=== PATIENT | female | born 1940 | race Caucasian/White ===

== ENCOUNTER → 2023-09-05 13:57 | Outpatient (REF) | payer OTHER, SELFPAY | LOC: HWRCS 13:57 | PROVIDERS: ATTENDING PHYSICIAN Internal Medicine Cardiovascular Disease; FAMILY PHYSICIAN Internal Medicine | DX: R06.02 Shortness of breath (principal) | CPT/HCPCS: 93306 ==

== ENCOUNTER 2024-01-07 13:19 | Inpatient (IN) | payer OTHER, SELFPAY ==
[2024-01-06] VITALS (8 sets, daily range): BP systolic 112–170; BP diastolic 56–97; PULSE 58–66; BMI 29.1
--- NOTE | 2024-01-06 20:07 | ED.GENMED ---
History of Present Illness
<ZELDA Castillo - Last Filed: 01/07/24 00:21>
General
Chief Complaint: Fainting/Passed Out
Source: patient
Exam Limitations: none
Time Seen by Provider: 01/06/24 19:40
Nursing documentation reviewed up to this point in time: agreed with
History of Present Illness
History of Present Illness:
Patient is an 83-year-old female who presents via EMS.
Patient has a history of hypertension COPD CHF and hyperlipidemia, brain aneurysm followed by [place] diastolic heart failure with EF of 65-70%(echo from August 2023) patient was at family dinner this evening and was sitting in a chair and got up to walk
and grandson reports she stated that she did not feel well and she passed out. She was called by her family she did not fall to the ground. They put her in a chair and she tried to stand up again and passed out again and then had 2 additional
syncopal episodes while in the chair.
Patient was drinking alcohol with dinner she does normally drink a glass of vodka a day.
She currently feels thirsty. She remembers feeling not well like she was going to pass out.
She denies any chest pain. She denies any shortness breath. She denies any headache. She is not on blood thinners. She does report she has not been feeling well for at least over the past week.
Past History
<ZELDA Castillo - Last Filed: 01/07/24 00:21>
Past History
ED Past Medical History: Asthma, CHF, COPD, HTN, Hypercholesterolemia, Hypothyroidism and Other (T-11 and L1 compression Fx, Ovarian cyst); Negative IDDM
ED Past Surgical History: Appendectomy, Cardiac (LINK), Cholecystectomy, Gynecological (Tubal, ), Orthopedic (Right hip replacement, Bilateral knee torn Meniscus), Tonsilectomy and Other (Abdominoplasty, Hernia repair, Vertebroplasty)
Social History
Tobacco: Former smoker
Alcohol: Daily (Vodka 1)
Drug: None
Personal:
Living: with family
Employment: Employed ([employer])
Family History
Family History: CAD and Asthma
Review of Systems
<ZELDA Castillo - Last Filed: 01/07/24 00:21>
Review of Systems
Allergies reviewed?: Yes
All Other Systems: ROS reviewed and negative except as documented in HPI and ROS
Constitutional: Reports no symptoms; Denies fever, fatigue or chills
EENT: Reports no symptoms
Respiratory: Reports no symptoms
Cardiac: Reports syncope
: Reports no symptoms
Musculoskeletal: Reports no symptoms
Skin: Reports no symptoms
Psychiatric: Reports no symptoms
Phy Exam
<ZELDA Castillo - Last Filed: 01/07/24 00:21>
General Physical Exam
General Presentation: no apparent distress
General age: appears stated age
General Skin: warm and dry
General Habitus: normal
General Mental: alert
General Hydration: appears well hydrated
Cardiovascular Exam
Cardiovascular Exam: bradycardia
Pulmonary Exam
Pulmonary Exam: lungs clear and no respiratory distress
Neurological Exam
Neurological Exam: alert and oriented x3
Musculoskeletal Exam
Musculoskeletal Exam: full ROM
Skin Exam
Skin Exam: normal color and warm/dry
Psychiatric Exam
Psychiatric Exam: normal mood/affect
Course
<ZELDA Castillo - Last Filed: 01/07/24 00:21>
Orders/Labs/Results
Orders:
Orders
01/06/24 19:43
Electrocardiogram (*1) Urgent
Reason for Study: Syncope
01/06/24 19:44
EKG- Treatment ONCE
01/06/24 19:54
CT Head W/o Iv Contrast Urgent
Comment:
Reason For Exam: syncope
01/06/24 20:03
Alcohol Urgent
Complete Blood Count/With Diff Urgent
Comprehensive Metabolic Panel Urgent
Free T4 Urgent
TSH Reflex To Free T4 Urgent
Comment: ADD ON
01/06/24 20:06
Orthostatic VS- Treatment ONCE
01/06/24 20:07
0.9% Sodium Chloride 500 ml [Nss] 500 ml IV BOLUS
01/06/24 20:33
Add On- LAB Urgent
Tests Added?: alcohol level
01/06/24 20:51
Urinalysis Reflex To Culture Urgent
Date Specimen was Collected: 01/06/24
Time Specimen was Collected: 20:49
01/06/24 22:11
0.9% Sodium Chloride 500 ml [Nss] 500 ml IV BOLUS
01/06/24 22:21
Mag Hydrox/Al Hydrox/Simeth [Maalox] 30 ml PO NOW STA
01/07/24 00:22
Albuterol [ProAIR HFA INHALER] 2 puff INH R Q4 PRN
Zolpidem Tartrate [Ambien] 10 mg PO HSPRN PRN
01/07/24 08:00
Aspirin Chewable [Low Strength Aspirin] 81 mg PO DAILY
Bumetanide [Bumex] 2 mg PO DAILY
Docusate Sodium [Colace] 100 mg PO DAILY
nifedipine 60 mg PO BID
omeprazole 40 mg PO BID
01/07/24 22:00
Montelukast Sodium [Singulair] 10 mg PO HS
Rosuvastatin Calcium [Crestor] 40 mg PO HS
Abnormal Lab Results
01/06/24
20:03
RBC 3.33 L 10^6/uL
(4.20-5.40)
Hgb 11.1 L g/dL
(12.0-16.0)
Hct 32.8 L %
(37.0-47.0)
MCH 33.3 H pg
(27.0-31.0)
MPV 10.5 H fL
(7.4-10.4)
Absolute Monos (auto) 0.8 H 10^3/uL
(0.1-0.6)
Monocytes % 9.8 H %
(1.7-9.3)
Potassium 3.4 L mmol/L
(3.5-5.1)
BUN 20 H mg/dl
(7-17)
Creatinine 1.1 H mg/dL
(0.6-1.0)
Alkaline Phosphatase 35 L U/L
(38-126)
TSH (Reflex) 39.00 H uIU/ml
(0.47-4.68)
Free T4 0.54 L ng/dl
(0.78-2.19)
01/06/24 20:03
01/06/24 20:03
Vital Signs
Initial and Last Documented VS:
Initial Vital Signs
Temp Pulse Resp Pulse Ox
98 F 64 22 94
01/06/24 19:44 01/06/24 19:44 01/06/24 19:44 01/06/24 19:44
Last Documented Vital Signs
Temp Pulse Resp BP Pulse Ox
98 F 51 12 170/61 94
01/06/24 19:44 01/06/24 21:58 01/06/24 21:58 01/06/24 22:11 01/06/24 19:44
Label Remover consulted with Physician
Label Remover consulted with physician?: Yes
Name of Physician Consulted: Jorge
<Silas Hickey, DO - Last Filed: 01/07/24 00:29>
Orders/Labs/Results
Orders:
Orders
01/06/24 19:43
Electrocardiogram (*1) Urgent
Reason for Study: Syncope
01/06/24 19:44
EKG- Treatment ONCE
01/06/24 19:54
CT Head W/o Iv Contrast Urgent
Comment:
Reason For Exam: syncope
01/06/24 20:03
Alcohol Urgent
Complete Blood Count/With Diff Urgent
Comprehensive Metabolic Panel Urgent
Free T4 Urgent
TSH Reflex To Free T4 Urgent
Comment: ADD ON
01/06/24 20:06
Orthostatic VS- Treatment ONCE
01/06/24 20:07
0.9% Sodium Chloride 500 ml [Nss] 500 ml IV BOLUS
01/06/24 20:33
Add On- LAB Urgent
Tests Added?: alcohol level
01/06/24 20:51
Urinalysis Reflex To Culture Urgent
Date Specimen was Collected: 01/06/24
Time Specimen was Collected: 20:49
01/06/24 22:11
0.9% Sodium Chloride 500 ml [Nss] 500 ml IV BOLUS
01/06/24 22:21
Mag Hydrox/Al Hydrox/Simeth [Maalox] 30 ml PO NOW STA
01/07/24 00:22
Albuterol [ProAIR HFA INHALER] 2 puff INH R Q4 PRN
Zolpidem Tartrate [Ambien] 10 mg PO HSPRN PRN
01/07/24 08:00
Aspirin Chewable [Low Strength Aspirin] 81 mg PO DAILY
Bumetanide [Bumex] 2 mg PO DAILY
Docusate Sodium [Colace] 100 mg PO DAILY
nifedipine 60 mg PO BID
omeprazole 40 mg PO BID
01/07/24 22:00
Montelukast Sodium [Singulair] 10 mg PO HS
Rosuvastatin Calcium [Crestor] 40 mg PO HS
Abnormal Lab Results
01/06/24
20:03
RBC 3.33 L 10^6/uL
(4.20-5.40)
Hgb 11.1 L g/dL
(12.0-16.0)
Hct 32.8 L %
(37.0-47.0)
MCH 33.3 H pg
(27.0-31.0)
MPV 10.5 H fL
(7.4-10.4)
Absolute Monos (auto) 0.8 H 10^3/uL
(0.1-0.6)
Monocytes % 9.8 H %
(1.7-9.3)
Potassium 3.4 L mmol/L
(3.5-5.1)
BUN 20 H mg/dl
(7-17)
Creatinine 1.1 H mg/dL
(0.6-1.0)
Alkaline Phosphatase 35 L U/L
(38-126)
TSH (Reflex) 39.00 H uIU/ml
(0.47-4.68)
Free T4 0.54 L ng/dl
(0.78-2.19)
01/06/24 20:03
01/06/24 20:03
Vital Signs
Initial and Last Documented VS:
Initial Vital Signs
Temp Pulse Resp Pulse Ox
98 F 64 22 94
01/06/24 19:44 01/06/24 19:44 01/06/24 19:44 01/06/24 19:44
Last Documented Vital Signs
Temp Pulse Resp BP Pulse Ox
98 F 51 12 170/61 94
01/06/24 19:44 01/06/24 21:58 01/06/24 21:58 01/06/24 22:11 01/06/24 19:44
<ZELDA Castillo - Last Filed: 01/07/24 00:21>
MDM/Problems Addressed
MDM/Problems Addressed:
As documented patient is a 83-year-old female who had several episodes of witnessed syncope by family this evening. Patient was having dinner with family and did have an alcoholic beverage.
She presents today awake alert she does not recall having syncope she does report feeling lightheaded when she was walking prior to syncope occurring. She does drink alcohol 1 glass of With juice every day. She presents lightheaded and feels
dehydrated however no chest pain shortness of breath. Patient's heart rate here has been in the 50s she denies any recent illness denies any recent fever chills her white count is normal her hemoglobin stable at 11.1, her creatinine is 1.1, patient
does have hypothyroidism and is on thyroxine her TSH is high her free T4 is slightly low.
Patient was monitored here given fluids drinking fluids as well however still feels intermittently lightheaded when she walks. She remains bradycardic in the 50s here in the ER. She is followed by Dr. Funes cardiology here at [facility]
would recommend admission for syncope and lightheadedness.
Chronic conditions affecting care:
hypothyroidism
<ZELDA Castillo - Last Filed: 01/07/24 00:21>
*Radiology
Radiology exam reviewed: radiology read reviewed
*Pulse Oximetry
Patient hypoxic: no
*EKG
Interpreted by ED Provider?: Yes
Heart Rate: 54
Rate: bradycardiac
Rhythm: sinus
Ischemia: non-specific ST changes
*Critical Care Note
Total Time (30-74mins, 75-104mins- exclusive of procedures): Not Applicable
ED Attending Note
<ZELDA Castillo - Last Filed: 01/07/24 00:21>
-
Portions of this chart may have been created with voice recognition software.� Occasional wrong word or��sound alike� substitutions may have occurred due to the inherent limitations of voice recognition software.
<Silas Hickey DO - Last Filed: 01/07/24 00:29>
ED Attending Note
Patient seen and examined by attending physician: Yes
I performed the substantive portion of visit, reviewed & personally made and approve the management plan that is documented in note by myself or DONNA.: Yes
ED Attending Note:
Patient is an 83-year-old female who had a near syncopal episode and had to be caught and placed in a chair by her granddaughter and grandson. Patient drinks a vodka and cranberry every day and had done this tonight. Patient was unable to recall
what she ate for dinner. Patient denied any headache or neck pain. Patient denied any recent illnesses or injuries. Patient denied any chest pain, shortness of breath or palpitations. Patient denies any GI or symptoms. On physical exam
patient does not appear in any distress. Heart is regular but bradycardic. Lungs are clear. Abdomen soft nontender. Extremities without edema or cyanosis. Neurologically the patient is intact. Patient is bradycardic despite not being on
beta-blockers or calcium channel blockers other than nifedipine. Patient wanted to go home. 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 My inclination was to
admit her from the start but she was insistent on going home. However given the repeat episodes she will be admitted. 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 However patient will be admitted either
way. Concerned that patient may go into alcohol withdrawal as she make sure that she has a vodka and cranberry every day. Patient states she uses a shot and a half of vodka and only drinks 1.
Discharge Plan
Departure
Patient Disposition: Admit
Date of Disposition: 01/06/24
Time of Disposition: 23:12
Admit to: Telemetry
Admit to doctor: hospitalist
Presentation/result/management discussed w/ accepting MD/DO: Hospitalist
Patient with high blood pressure during this ER visit?: Yes
Condition: Fair
Covid-19: Not Applicable
Discharge Problem:
Syncope
Prescriptions:
No Action
rosuvastatin [Crestor] 40 mg Tablet
40 mg PO HS
bumetanide 2 mg Tablet
2 mg PO DAILY Qty: 0 0RF
aspirin 81 mg Tablet,Chewable
81 mg PO DAILY Qty: 0 0RF
levothyroxine 112 mcg tablet
112 mcg PO DAILY
omeprazole 40 mg capsule,delayed release(DR/EC)
40 mg PO BID
potassium chloride 20 mEq tablet,ER particles/crystals
20 meq PO BID
nifedipine 60 mg tablet extended release 24hr
60 mg PO BID
docusate sodium [Stool Softener] 100 mg Capsule
100 mg PO DAILY
montelukast 10 mg tablet
10 mg PO HS
albuterol sulfate 90 mcg/actuation HFA aerosol inhaler
2 puff INHALATION R Q4 PRN (Reason: sob/wheezing)
guaifenesin [Mucinex] 600 mg Tablet Extended Release 12hr
600 mg PO BID
meclizine 25 mg tablet
25 mg PO BID PRN (Reason: dizziness) Qty: 20 0RF
zolpidem 5 mg tablet
10 mg PO HSPRN PRN (Reason: insomnia)
Referrals:
Karen Chris MD [Family Provider] -
Interventions
Interventions:
*Risk Screen - Suicide Last Done: 01/06/24 19:50
*General Assessment Last Done: 01/06/24 19:50
*Neglect/Abuse Screening Last Done: 01/06/24 19:50
*ED COVID-19 Vaccine History Last Done: 01/06/24 19:50
ED- Cardiac Assessment Last Done: 01/06/24 20:27
ED- Neurological Assessment Last Done: 01/06/24 20:27
Discharge Date and Time
Print Language: MOHAWK
[2024-01-06 20:10] LABS: % Basophils 0.9 % (0-2); % Eosinophils 4.5 % (0-6); % Immature Granulocytes 0.3 % (0-0.5); % Lymphocytes 29.7 % (20.5-51.1); % Monocytes 9.8 % (1.7-9.3); % Neutrophils 54.8 % (42.2-75.2); Absolute Basophils 0.1 10^3/uL (0-0.2); Absolute Eosinophils 0.4 10^3/uL (0-0.7); Absolute Lymphocytes 2.3 10^3/uL (1.2-3.4); Absolute Monocytes 0.8 10^3/uL (0.1-0.6); Absolute Neutrophils 4.2 10^3/uL (1.4-6.5); Hematocrit 32.8 % (37.0-47.0); Hemoglobin 11.1 g/dL (12.0-16.0); Mean Corp Hgb Conc. 33.8 g/dL (33.0-37.0); Mean Corpuscular Hgb 33.3 pg (27.0-31.0); Mean Corpuscular Volume 98.5 fL (81.0-99.0); Mean Platelet Volume 10.5 fL (7.4-10.4); Nucleated Red Blood Cells % 0 %; Platelet Count 221 10^3/uL (130-400); Red Blood Cell Count 3.33 10^6/uL (4.20-5.40); Red Cell Dist. Width 14.5 % (11.5-14.5); White Blood Cell Count 7.7 10^3/uL (4.8-10.8)
[2024-01-06] MEDS: NSS 500 IV ×2 (20:11→22:14)
[2024-01-06 20:27] LABS: ALT (SGPT) 15 U/L (0-35); AST (SGOT) 27 U/L (14-36); Alkaline Phosphatase 35 U/L (38-126); Blood Urea Nitrogen 20 mg/dl (7-17); Calcium 9.1 mg/dl (8.4-10.2); Carbon Dioxide 23 mmol/L (22-30); Chloride 104 mmol/L (98-107); Estimated Creatinine Clearance 42 ml/min; Glucose 95 mg/dl (70-99); Potassium 3.4 mmol/L (3.5-5.1); Sodium 140 mmol/L (135-145); Total Bilirubin 0.2 mg/dl (0.2-1.3); Total Protein 6.5 g/dl (6.3-8.2); eGFR 50.48
[2024-01-06 20:50] LABS: Alcohol 61 mg/dl
[2024-01-06 20:58] LABS: Urine Albumin Negative (Neg - Trace); Urine Bilirubin Negative (Negative); Urine Character Clear (Clear); Urine Color Yellow; Urine Glucose Negative (Negative); Urine Ketone Negative (Negative); Urine Leukocyte Negative (Negative); Urine Nitrite Negative (Negative); Urine Occult Blood Negative (Negative); Urine Urobilinogen Negative (Neg - 1+)
[2024-01-06 21:57] LABS: Free T4 0.54 ng/dl (0.78-2.19)
[2024-01-06] MEDS: MAALOX 30 ML PO (22:34)
[2024-01-07] VITALS (12 sets, daily range): BP systolic 82–181; BP diastolic 46–92; PULSE 53–59; BMI 28.4
--- NOTE | 2024-01-07 00:10 | HPS.HSE ---
Family Physician
-
Family Physician: Karen Chris
Chief Complaint
-
Syncopal / presyncopal episodes
History of Present Illness
This is an 83-year-old female was a past medical history that is significant for hypothyroidism, hypertension, CHF with preserved EF, chronic alcohol use, COPD not on home O2, prior episodes of syncopal status post ambulatory monitoring, presenting
to the emergency department with episode of syncope this evening.
Patient reports arousing in usual state of health. Had usual activities today. Had dinner. After dinner the patient said she felt lightheaded. She is due to up to walk up a flight of stairs and family members reported her fainting to the floor.
She did not fall as family members were able to support her to the floor. They report around a chair and the patient had to be supported to keep her head up. She was intermittently responsive. This lasted for about 15 minutes and then the patient
came back to her usual state. Family denied any tonic-clonic activity. There was no loss of bladder or bowel continence. Patient herself denied any nausea. She denied any chest pain at the time. Patient denies any recent episodes of chest pain
exertional or otherwise. She denied any changes in breathing difficulties but states that she chronically has some shortness of breath. She denies any lower extremity swelling or calf tenderness. She denies any recent cough fevers or chills. She
denies any melena hematochezia or diarrhea. She has no recent changes in her medications and has been maintaining of 2 mg of Bumex daily chronically. She denies any prior history of cardiac stents or CABG.
In the emergency department she was afebrile, blood pressure was initially 170/60 with a pulse of 51 and she was satting at 93% on room air. ECG shows a sinus bradycardia at a rate of 54 no acute ischemic changes. No interval changes. Telemetry
did showed occasional PVC. CBC was unremarkable electrolytes showed a potassium of 3.4 but otherwise unremarkable. Creatinine was 1.1 which is similar to a baseline of 1.0. UA was negative. TSH was elevated and free T4 was slightly below the
normal level. No CT evidence for acute intracranial hemorrhage or transcortical infarct. When attempting to ambulate in the ED the patient still felt lightheaded. Prior Linq device has been long deactivated.
Medical History
Past Medical History
Past Medical History: Reports CHF (preserved ef), COPD and Hypothyroidism
Additional Past Medical History:
BPPV
Past Surgical History: Reports Other
Social History
Tobacco: Former Smoker
Alcohol: Daily (2 shots per day, )
Drug: None
Personal: Single
Living: With Family
Employment: Retired
Family History
Family History: Not pertinent
Allergies / Home Medications
Allergies reflects when Allergies were last updated in [facility] [employer].
Home Medications with original date entered in [facility] [employer]
Allergy/Medication List:
Allergies
Allergy/AdvReac Type Severity Reaction Status Date / Time
amoxicillin Allergy diarrhea Verified 10/31/22 18:23
morphine Allergy Vomiting Verified 10/31/22 18:23
Home Medications
rosuvastatin 40 mg tablet (Crestor) 40 mg PO HS High cholesterol 11/04/21
aspirin 81 mg chewable tablet 81 mg PO DAILY Blood clot prevention/tx #0 tabs 04/26/22
bumetanide 2 mg tablet 2 mg PO DAILY Fluid retention/Swelling #0 tabs 04/26/22
levothyroxine 112 mcg tablet 112 mcg PO DAILY Thyroid 07/11/22
albuterol sulfate 90 mcg/actuation aerosol inhaler 2 puff inhalation R Q4 PRN sob/wheezing 10/31/22
docusate sodium 100 mg capsule (Stool Softener) 100 mg PO DAILY 10/31/22
guaifenesin 600 mg tablet, extended release 12 hr (Mucinex) 600 mg PO BID 10/31/22
montelukast 10 mg tablet 10 mg PO HS 10/31/22
nifedipine 60 mg tablet,extended release 24 hr 60 mg PO BID 10/31/22
omeprazole 40 mg capsule,delayed release 40 mg PO BID 10/31/22
potassium chloride 20 mEq tablet,extended release(part/cryst) 20 meq PO BID 10/31/22
meclizine 25 mg tablet 25 mg PO BID PRN dizziness #20 tabs 11/02/22
zolpidem 5 mg tablet 10 mg PO HSPRN PRN insomnia 01/06/24
Review of Systems
-
History Source: Patient
Constitutional: Reports No Symptoms
EENT: Reports No Symptoms
Respiratory: Reports No Symptoms
Cardiac: Reports No Symptoms
Abdomen/GI: Reports No Symptoms
: Reports No Symptoms
Musculoskeletal: Reports No Symptoms
Skin: Reports No Symptoms
Neurological: Reports Dizzy
Endocrine: Reports No Symptoms
Hematologic/Lymphatic: Reports No Symptoms
Psych: Reports No Symptoms
Physical Exam
Vital Signs
Vital Signs
Temp Pulse Resp BP Pulse Ox
98 F 51 12 170/61 94
01/06/24 19:44 01/06/24 21:58 01/06/24 21:58 01/06/24 22:11 01/06/24 19:44
Physical Exam
General: Well Developed, Well Nourished, No Apparent Distress and Comfortable
HEENT: NormoCephalic, Anicteric, Moist mucous membranes and Atraumatic
Respiratory: Clear
Cardiac: S1/S2 and Bradycardia
Breast: Deferred by me
GI: Soft, Non Tender, Non Distended and Normal Bowel Sounds
Musculoskeletal: No Clubbing, No Cyanosis and No Edema
Skin: Warm
Neuro: AO x 3
Hematologic/Lymphatic: No Lymphadenopathy
Psych: Calm
Laboratory Results
-
01/06/24 20:03
01/06/24 20:03
Laboratory Results
Total Bilirubin 0.2 mg/dl (0.2-1.3) 01/06/24 20:03
AST 27 U/L (14-36) 01/06/24 20:03
ALT 15 U/L (0-35) 01/06/24 20:03
Alkaline Phosphatase 35 U/L (38-126) L 01/06/24 20:03
Data Reviewed
-
CT Scan: Report Reviewed by me
Medical Tests (Nuc Med, Echo, EKG etc): Image Personally Visualized and interpreted
Lab Data: Labs Reviewed by me
Old Records: Reviewed
Impression/Plan
-
IMPRESSION:
83-year-old female with past medical history of HFpEF, COPD not on home O2, hypertension, hypothyroid, prior episodes of dizziness, BPPV status post total ambulatory monitoring presenting to the emergency department with witnessed syncopal episode
at home. Patient currently asymptomatic but feels lightheaded. ECG shows sinus bradycardia but otherwise unremarkable. CT of the head shows no acute changes. Troponin was within normal limits. Patient CBC and electrolytes were mostly
unremarkable. UA was unremarkable.
PLAN:
1. Dizziness - Vasovagal vs arrhythmia vs orthostatic. No vertigo. H/o etoh but denies any more than usual drinking today
- admit to telemetry x 24 h
- orthostatic vs
- hold bumex in am pending orthostatics
- echo in am
- etoh level
- sinus vibha not on kerrie blockade and normal intervals. Monitor for now, with orthostatics and with activity, avoid rate lowering agents, increasing levothyroxine (see below)
- cycle cardiac enzymes
2. Hypothyroid - TSH is elevated and fT4 low
- increase levothyroxine to 137.5 and f/u with pmd
- monitor heart rate
3. CHF - preserved EF, no cardiac ischemia or history of. Appears euvolemic on exam to me
- continue nifediipine
- there is question of adjusting her bumex per outpatient notes, will defer to cardiology if not orthostatic
- family request cardiology consult but I don't yet see the need so awaiting monitoring results
4. COPD
- no ox2 requirements, continue albuterol prn and home montelukast
DVT PPX - lovenox
Code Status - Full code
[2024-01-07] MEDS: AMBIEN 10 MG PO (01:50)
[2024-01-07] MEDS: MAGNESIUM OXIDE 500 MG PO (02:40)
--- NOTE | 2024-01-07 03:53 | PTCARENOTE ---
Patient received from ED via stretcher. Patient denies any pain or discomfort upon arrival to unit. Patient reports some dizziness at times. Patient aware she needs to call before getting OOB. Patient hypertensive, Sinus Bradycardia noted on
conveyor monitor. Heart rate noted to go into the 30's when sleeping. ZELDA Freire made aware of bradycardia. Call be[facility] reviewed with patient and left in reach. Will monitor.
[2024-01-07] MEDS: SYNTHROID 137 MCG PO (05:59)
[2024-01-07] MEDS: COLACE 100 MG PO (08:10)
[2024-01-07] MEDS: PROTONIX 40 MG PO ×2 (08:10→21:12)
[2024-01-07] MEDS: PROCARDIA XL (EXTENDED RELEASE) 60 MG PO (08:10)
[2024-01-07] MEDS: LOW STRENGTH ASPIRIN 81 MG PO (08:10)
[2024-01-07 08:21] LABS: Blood Urea Nitrogen 16 mg/dl (7-17); Calcium 8.2 mg/dl (8.4-10.2); Carbon Dioxide 28 mmol/L (22-30); Chloride 105 mmol/L (98-107); Estimated Creatinine Clearance 41 ml/min; Glucose 89 mg/dl (70-99); Magnesium 2.3 mg/dl (1.6-2.3); Potassium 4.4 mmol/L (3.5-5.1); Sodium 141 mmol/L (135-145); eGFR 50.48
--- NOTE | 2024-01-07 08:54 | CON.CAR ---
Addendum entered and electronically signed by Prerna Mckeon DO 01/07/24 14:48:
I saw and examined the patient.
The Policy Services Representative's note was reviewed and I agree with the note.
Comment: Carly came to [facility] yesterday after an episode of syncope at home and cardiology has been consulted. Patient was attending a family dinner last night and she stood up from a seated position and attempted to climb stairs when she became less
responsive and appeared near syncopal. Family attended to patient and she lost consciousness and was lowered to the floor and avoided falling. Patient had another episode of syncope when she attempted to stand and again while seated in a chair,
sounds like 4 episodes of loss of consciousness in total. 911 was called and in [facility] the patient continued with lightheadedness and near syncope and was admitted. Patient is orthostatic by VS. Called patient's granddaughter, Megan, who is a PA with
local PCP office and we had an informative conversation. Patient lives alone, but has seen cognitive specialist for concerns about memory, especially dates and times. Patient has her meds delivered in monthly pill packs and reported to me that she
was compliant with her meds, but upon talking with family the patient's November pill pack is untouched and it is now December. Patient also says that she drink 1.5 shots of vodka a night and has done so for years, but that last night she had closer
to 5 shots and this was likely an accident as she usually measures her alcohol at home, but was drinking a pre-mixed alcoholic beverage last night and the quantity of alcohol wasn't clear. Patient has a h/o syncope with admissions for syncope 03/2022
and 10/2022. Other admissions have been for orthostasis and dizziness. Patient has a h/o cerebral aneurysm that is followed at [place] and there was discussion of clipping at some point, but patient was busy caring for her who has now
. CT head overnight was unremarkable and MRI pending. TSH 39 and free T4 0.54 with levothyroxine noncompliance as mentioned.
GEN: NAD. AAO x3.
HEENT: mmm
LUNGS: CTA B/L without wheeze or rales
CV: SR on tele. Reg, S1/S2, no murmur
ABD: soft, BS+, NT, ND
EXT: No edema B/L
Plan:
Witnessed syncope at home
-Patient was attending a family dinner last night and she stood up from a seated position and attempted to climb stairs when she became less responsive and appeared near syncopal. Family attended to patient and she lost consciousness and was lowered
to the floor and avoided falling. Patient had another episode of syncope when she attempted to stand and again while seated in a chair, sounds like 4 episodes of loss of consciousness in total. 911 was called and in [facility] the patient continued with
lightheadedness and near syncope and was admitted.
-Orthostatic vital signs positive
-ECG reviewed by me with sinus bradycardia and no acute ischemic changes. Initial Troponin undetectable.
-Probably related to dehydration/alcohol. Cardiac PA called patient's granddaughter, Megan (PA at a local PCP office) who was present at [facility] of her syncopal event: Patient lives alone, but has seen cognitive specialist for concerns about memory,
especially dates and times. Patient has her meds delivered in monthly pill packs and reported to me that she was compliant with her meds, but upon talking with family the patient's November pill pack is untouched and it is now December. Patient also
says that she drink 1.5 shots of vodka a night and has done so for years, but that last night she had closer to 5 shots and this was likely an accident as she usually measures her alcohol at home, but was drinking a pre-mixed alcoholic beverage last
night and the quantity of alcohol wasn't clear.
-Patient has a h/o syncope with admissions for syncope 03/2022 and 10/2022 and admissions for orthostasis and dizziness.
-Monitor orthostatic vital signs.
-Will stop Bumex and start Lasix 20 mg MWF.
-Repeat echocardiogram
-Monitor telemetry. So far no significant bradycardia arrhythmia, pauses or arrhythmia
-Will arrange for a 7 day CAM monitor to be worn as an outpatient.
-Monitor for alcohol withdrawal/DTs
-ETOH cessation has been stressed by healthcare providers and family, but patient is not interested in cessation.
-Patient had a favorable response to Lexapro 10 mg daily and then stopped taking after a month when it wasn't added to her pill packs, will restart now and check ECG in AM
-Patient has a h/o cerebral aneurysm that is followed at [place] and there was discussion of clipping at some point, but patient was busy caring for her who has now .
- CT of the head with no acute intracranial hemorrhage or infarct. 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 She also has moderate
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
-Brain MRI with no acute intracranial abnormality. Again, small, chronic infarcts noted in the right cerebellum. Left frontal sinus and bilateral ethmoid sinus disease.
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 High-grade stenosis of the P2 segment of the right IDENTIFICATION OFFICER
-Carotid duplex 11/01/2022: 50 to 69% stenosis right ICA. Less than 50% left ICA. Repeat.
Hypothyroidism with medication noncompliance
-TSH 39 and free T4 0.54
Will follow with
Original Note:
Consultation
Consultation Request
Date/Time Consultation Requested: 01/07/24
Date/Time Consultation Performed: 01/07/24
Requesting Provider: Dr. Arias
Performing Provider: Dr. Burgess
Reason for Consultation: Syncope
Medical History
-
History of Present Illness:
Patient came to [facility] yesterday after an episode of syncope at home and cardiology has been consulted. Patient was attending a family dinner last night and she stood up from a seated position and attempted to climb stairs when she became less
responsive and appeared near syncopal. Family attended to patient and she lost consciousness and was lowered to the floor and avoided falling. Patient had another episode of syncope when she attempted to stand and again while seated in a chair,
sounds like 4 episodes of loss of consciousness in total. 911 was called and in [facility] the patient continued with lightheadedness and near syncope and was admitted. Patient is orthostatic by VS. Called patient's granddaughter, Megan, who is a PA with
local PCP office and we had an informative conversation. Patient lives alone, but has seen cognitive specialist for concerns about memory, especially dates and times. Patient has her meds delivered in monthly pill packs and reported to me that she
was compliant with her meds, but upon talking with family the patient's November pill pack is untouched and it is now December. Patient also says that she drink 1.5 shots of vodka a night and has done so for years, but that last night she had closer
to 5 shots and this was likely an accident as she usually measures her alcohol at home, but was drinking a pre-mixed alcoholic beverage last night and the quantity of alcohol wasn't clear. Patient has a h/o syncope with admissions for syncope 03/2022
and 10/2022. Other admissions have been for orthostasis and dizziness. Patient has a h/o cerebral aneurysm that is followed at [place] and there was discussion of clipping at some point, but patient was busy caring for her who has now
. CT head overnight was unremarkable and MRI pending. TSH 39 and free T4 0.54 with levothyroxine noncompliance as mentioned.
PMH:
Orthostatic hypotension
h/o syncope
HTN
Chronic HFpEF
Hypothyroid
Medication noncompliance
Chronic HF preserved ejection fraction.
COPD and asthma overlap
Non-obstructive CAD by cath 11/13/16
Hyperlipidemia
Hypothyroidism
GERD
h/o TIA and cerebral aneurysm
Linq implant 01/2020, no longer transmitting data since 04/2023
Past Medical History
Past Medical History: Other (in HPI)
Past Surgical History: Appendectomy, Cardiac (linq monitor), Cholecystectomy, Gynecological (Tubal ligation), Orthopedic (Right hip replacement), Tonsilectomy and Other (Abdominoplasty, Hernia repair, Vertebroplasty)
Social History
Tobacco: Non-Smoker
Alcohol: Daily (1 drink daily - 1.5 shots of vodka in a cocktail)
Drug: None
Personal:
Living: With Family
Family History
Family History: CAD (mother CAD/[place] at 62) and Cancer (father prostate CA)
Allergies / Home Medications
Allergy/AdvReac Type Severity Reaction Status Date / Time
amoxicillin Allergy diarrhea Verified 10/31/22 18:23
morphine Allergy Vomiting Verified 10/31/22 18:23
�Medication �Instructions �Recorded �Confirmed �Type
rosuvastatin 40 mg tablet (Crestor) 40 mg PO HS High cholesterol 11/04/21 01/06/24 History
aspirin 81 mg chewable tablet 81 mg PO DAILY Blood clot 04/26/22 01/06/24 Rx
prevention/tx #0 tabs
bumetanide 2 mg tablet 2 mg PO DAILY Fluid 04/26/22 01/06/24 Rx
retention/Swelling #0 tabs
levothyroxine 112 mcg tablet 112 mcg PO DAILY Thyroid 07/11/22 01/06/24 History
albuterol sulfate 90 mcg/actuation 2 puff inhalation R Q4 PRN 10/31/22 01/06/24 History
aerosol inhaler sob/wheezing
docusate sodium 100 mg capsule 100 mg PO DAILY Constipation 10/31/22 01/06/24 History
(Stool Softener)
guaifenesin 600 mg tablet, 600 mg PO BID Cough 10/31/22 01/06/24 History
extended release 12 hr (Mucinex)
montelukast 10 mg tablet 10 mg PO HS Allergies 10/31/22 01/06/24 History
nifedipine 60 mg tablet,extended 60 mg PO BID Blood Pressure 10/31/22 01/06/24 History
release 24 hr
omeprazole 40 mg capsule,delayed 40 mg PO BID Gastrointestinal Issue 10/31/22 01/06/24 History
release
potassium chloride 20 mEq 20 meq PO BID Electrolyte Repletion 10/31/22 01/06/24 History
tablet,extended release(part/cryst)
meclizine 25 mg tablet 25 mg PO BID PRN dizziness #20 tabs 11/02/22 01/06/24 Rx
zolpidem 10 mg tablet 10 mg PO HS PRN insomnia 01/07/24 01/07/24 History
Review of Systems
-
History Source: Patient
All other systems: Negative unless noted
Physical Exam
Vital Signs
Temp Pulse Resp BP Pulse Ox
97.9 F 51 18 170/68 98
01/07/24 07:27 01/07/24 08:10 01/07/24 07:27 01/07/24 08:10 01/07/24 07:27
GEN: NAD. AYOO x3.
HEENT: EOMI, MMM
LUNGS: CTA B/L without wheeze or rales
CV: SR on tele. Reg, S1/S2, no murmur
ABD: soft, BS+, NT, ND
EXT: No clubbing, cyanosis, lesions or edema B/L
NEURO: Gross non-focal
SKIN: Warm, dry and pink. No rash
Lab Results
01/06/24 20:03
01/07/24 06:09
Impression / Plan
-
PCP: Karen Chris
Cafeteria Manager: Dr. Laura Funes
Impression:
Syncope
Orthostatic hypotension
h/o syncope
HTN
Chronic HFpEF
Hypothyroid
Medication noncompliance
Chronic HF preserved ejection fraction.
COPD and asthma overlap
Non-obstructive CAD by cath 11/13/16
Hyperlipidemia
Hypothyroidism
GERD
h/o TIA and cerebral aneurysm
Linq implant 01/2020, no longer transmitting data since 04/2023
Cardiac catheterization 11/13/16�for chest pain and an abnormal nuclear stress test revealed 30% distal left main stenosis area of 30% RCA stenosis. Normal LV function. Nonobstructive CAD.
CAM monitor 09/2023: SR throughout with occasional PACs and PVCs, no heart block
Echo 01/05/20: EF 65 to 70%, mild concentric LVH, mild AI
ECHO 10/03/2021:�EF 70 to 75%, mild mitral regurgitation, no significant change compared to prior
Echo 09/05/2023: EF 65 to 70%, normal RV size and function, mild to moderate MR, MAC, structurally normal aortic valve without stenosis
Echo 01/07/2024: Study pending
Plan:
-Patient came to [facility] yesterday after an episode of syncope at home and cardiology has been consulted. Patient was attending a family dinner last night and she stood up from a seated position and attempted to climb stairs when she became less
responsive and appeared near syncopal. Family attended to patient and she lost consciousness and was lowered to the floor and avoided falling. Patient had another episode of syncope when she attempted to stand and again while seated in a chair,
sounds like 4 episodes of loss of consciousness in total. 911 was called and in [facility] the patient continued with lightheadedness and near syncope and was admitted. Patient is orthostatic by VS. Called patient's granddaughter, Megan, who is a PA with
local PCP office and we had an informative conversation. Patient lives alone, but has seen cognitive specialist for concerns about memory, especially dates and times. Patient has her meds delivered in monthly pill packs and reported to me that she
was compliant with her meds, but upon talking with family the patient's November pill pack is untouched and it is now December. Patient also says that she drink 1.5 shots of vodka a night and has done so for years, but that last night she had closer
to 5 shots and this was likely an accident as she usually measures her alcohol at home, but was drinking a pre-mixed alcoholic beverage last night and the quantity of alcohol wasn't clear. Patient has a h/o syncope with admissions for syncope 03/2022
and 10/2022. Other admissions have been for orthostasis and dizziness. Patient has a h/o cerebral aneurysm that is followed at [place] and there was discussion of clipping at some point, but patient was busy caring for her who has now
. CT head overnight was unremarkable and MRI pending. TSH 39 and free T4 0.54 with levothyroxine noncompliance as mentioned.
-Called and talked with patient's granddaughter for 21:57 with information gathered as outlined above.
-Check echo
-ECG reviewed by me with sinus bradycardia and no acute ischemic changes. Initial Troponin undetectable.
-Tele reviewed by me at length, personally reviewed every alarm review event. Events labeled as pause were actually sinus rhythm, events labeled HR 29 were sinus rhythm with HR 50-55. CAM monitor form 09/2023 was unremarkable.
-Will arrange for a 7 day CAM monitor to be worn as an outpatient.
-Patient is orthostatic by VS. Will change nifedipine XL to 30 mg daily with a hold parameter for SBP less than 140. Granddaughter makes a great point that patient will not adhere to a regimen at home that requires her to take or not take meds as
needed or based on parameters. Will try this regimen starting now and if stable will d/c on nifedipine XL 30 mg daily understanding that permissive HTN will help reduce near syncope/syncope events.
-Patient was taking Lasix 40 mg daily PRN prior to admission, but granddaughter reports that Bumex 2 mg daily is still being delivered in pill packs. Will stop Bumex and start Lasix 20 mg MWF.
-Check pro-BNP
-Hospitalist service is addressing the TFT and dose of levothyroxine has been increased.
-ETOH cessation has been stressed by healthcare providers and family, but patient is not interested in cessation.
-Patient had a favorable response to Lexapro 10 mg daily and then stopped taking after a month when it wasn't added to her pill packs, will restart now and check ECG in AM
--- NOTE | 2024-01-07 10:05 | W.PN.HOSP.TC ---
Today's Communication/Plan
-
see PN
Assessment / Plan
Assessment / Plan
83yo F with hypothyroidism, HTN, COPD, GERD, HLD, orthostatic hypotension, BPPV, recurrent syncope, Hx of TIA, Linq implant brought with syncope. As per patienbt it reoccured couple of times yesterday and patient does not remember the episode
itself. Family whitnessed and no report of seizure-like activity. On multiple past admissions ffor the same she was found to have multifactiorial orthostatic hypotension as a cause of syncope. Was also orthostatic in ED and reeported dizziness 1
week priorto admission. Patient still is on Bumex, taking pre-sorted meds delivered from pharmacy, however does not have clear understanding on what each pill is. Found with worsened hypothyroidism too. As per daughter - patient might not be
compliant with her meds as she is living alone and recently lost her .
A/P:
#Recurrent syncope
#Non-obstructive CAD
#HLD
#Orthostatic hypotension
#labile BP with possible essential HTN
#Bradycardia
#BPPV
#HFpEF, chronic
Telemetry showed episodes of HR around 50
Echo pending
Trop WNL
Cardiology consult
hold Bumex
Daily orthostatic VS
patient not describing vertigo at this time
check DDImer with wells score of 0
#brain aneurism
Previously evaluated in [place] - patient decided for monitoring instead of intervention
MRA brain/neck
#COPD not in exacerbation
#HLD
#Hx of TIA
#CKD stage 3b
Base Cr around 1.1
cont home meds
#Hypothyroidism
increased Synthroid
Recheck TSH in 3-4 weeks with PCP
DVT ppx hep
DNR/DNI
I have spent at least 59min reviewing chart, test results, communication with consultants and direct patient care
Anticipated Discharge: 24 - 48 hours
Subjective/Interval History
-
Date of Service: January 07, 2024
Objective Data
-
Labs:
Laboratory Results
01/07/24
06:09
Sodium 141
Potassium 4.4 D
Chloride 105
Carbon Dioxide 28
BUN 16
Creatinine 1.1 H
Glucose 89
Calcium 8.2 L
Vital Signs:
Vital Signs
Temp Pulse Resp BP Pulse Ox
97.9 F 51 18 170/68 98
01/07/24 07:27 01/07/24 08:10 01/07/24 07:27 01/07/24 08:10 01/07/24 07:27
I&O
01/06/24 01/07/24 01/08/24
06:59 06:59 06:59
Intake Total 360 / 360
Balance 360 / 360
Review of Systems
-
History Source: Patient
All other systems: Reviewed and negative
Neuro: Reports Dizzy
Physical Exam
-
General: No Apparent Distress
HEENT: Normocephalic
Respiratory: Clear to Auscultation
Cardiac: Regular Rhythm
GI: Soft, Nontender and Nondistended
Musculoskeletal: No Clubbing, No Cyanosis and No Edema
Skin: Dry
Neuro: Awake, Alert, Oriented and AO x 3
Psych: Calm and Apparent Dementia
[2024-01-07 10:28] LABS: D-Dimer 0.87 ug/mlFEU (0.00-0.50)
[2024-01-07 11:32] LABS: Troponin I < 0.012 ng/ml
[2024-01-07 13:15] LABS: NT-proBNP 436 pg/ml
[2024-01-07] MEDS: NSS 1000 IV (13:44)
[2024-01-07] MEDS: LEXAPRO 10 MG PO (13:44)
[2024-01-07] MEDS: HEPARIN 5000 UNITS SC ×2 (17:35→21:15)
[2024-01-07] MEDS: CRESTOR 40 MG PO (21:12)
[2024-01-07] MEDS: SINGULAIR 10 MG PO (21:12)
[2024-01-07] MEDS: AMBIEN 5 MG PO (21:15)
[2024-01-08] VITALS (7 sets, daily range): BP systolic 107–167; BP diastolic 39–71; PULSE 53–66; BMI 27.9
[2024-01-08 00:45] LABS: Troponin I < 0.012 ng/ml
[2024-01-08] MEDS: SYNTHROID 125 MCG PO (05:47)
[2024-01-08 07:31] LABS: Blood Urea Nitrogen 10 mg/dl (7-17); Carbon Dioxide 26 mmol/L (22-30); Chloride 106 mmol/L (98-107); Estimated Creatinine Clearance 45 ml/min; Glucose 87 mg/dl (70-99); Potassium 4.2 mmol/L (3.5-5.1); Sodium 140 mmol/L (135-145)
[2024-01-08] MEDS: PROCARDIA XL (EXTENDED RELEASE) 30 MG PO (08:24)
[2024-01-08] MEDS: HEPARIN 5000 UNITS SC (08:27)
[2024-01-08] MEDS: LOW STRENGTH ASPIRIN 81 MG PO (08:27)
[2024-01-08] MEDS: PROTONIX 40 MG PO (08:27)
[2024-01-08] MEDS: COLACE 100 MG PO (08:28)
[2024-01-08] MEDS: LEXAPRO 10 MG PO (08:28)
--- NOTE | 2024-01-08 10:26 | W.PN.CARDCBS ---
Addendum entered and electronically signed by Anselmo Longo MD 01/08/24 15:59:
I saw and examined the patient.
The Drier Operator Head's note was reviewed and I agree with the note.
Comment:
GEN: No distress, awake, Ox3
HEENT: supple, anicteric, mmm
LUNGS: CTA, no wheezes/rales
CV: Reg, S1/S2, 1/6 syst LSB, no gallop
ABD: soft, BS+, NT/ND
EXT: No edema
NEURO: Gross non-focal
SKIN: No rash
Plan:
Symptoms are improved. Start physical therapy. Recommend stop drinking alcohol.
Repeat orthostasis vital signs.
Decrease nifedipine to 30 mg daily and change Bumex to Lasix 20 mg Sunday.
Will check outpatient monitor
May need to allow some permissive hypertension.
Encourage compliance with thyroid medication.
Original Note:
Today's Communication / Plan
-
Recommended to patient that she completely abstain from ETOH, she is int interested in that approach
Agree with repeat orthostatic VS.
Outpatient dose of nifedipine XL lowered to 30 mg daily
Outpatient dose of Bumex changed to Lasix 20 mg MWF
Impression / Plan
-
PCP: Karen Chris
Dye Machine Operator: Dr. Laura Funes
Impression:
Syncope
Orthostatic hypotension
h/o syncope
HTN
Chronic HFpEF
Hypothyroid
Medication noncompliance
Chronic HF preserved ejection fraction.
COPD and asthma overlap
Non-obstructive CAD by cath 11/13/16
Hyperlipidemia
Hypothyroidism
GERD
h/o TIA and cerebral aneurysm
Linq implant 01/2020, no longer transmitting data since 04/2023
Cardiac catheterization 11/13/16�for chest pain and an abnormal nuclear stress test revealed 30% distal left main stenosis area of 30% RCA stenosis. Normal LV function. Nonobstructive CAD.
CAM monitor 09/2023: SR throughout with occasional PACs and PVCs, no heart block
Echo 01/05/20: EF 65 to 70%, mild concentric LVH, mild AI
ECHO 10/03/2021:�EF 70 to 75%, mild mitral regurgitation, no significant change compared to prior
Echo 09/05/2023: EF 65 to 70%, normal RV size and function, mild to moderate MR, MAC, structurally normal aortic valve without stenosis
Echo 01/07/2024: EF 70%, mild MR
Plan:
-Patient reports symptomatic improvement and is asking for d/c to home 01/08/24. Corresponded with PT via TT and they report that patient was able to ambulate with a walker and climb stairs. Patient reported feeling lightheaded. No orthostatic VS
reported, they have been ordered.
-Long talk with patient's granddaughter 01/07/24. Talked with patient on 01/08/24 and recommended that she abstain from ETOH completely given syncope, but patient said in her opinion she does not drink much and plans to continue to drink what she
describes as one drink daily.
-Called and talked with patient's granddaughter for 21:57 with information gathered as outlined above.
-EF stable and only mild MR by echo
-Tele reviewed by me and sinus bradycardia without heart block of pauses.
-Will arrange for a 7 day monitor to be mailed to patient. Of note patient also completed a 7 day monitor in 09/2023 as noted above.
-Outpatient dose of nifedipine XL 60 mg BID was decreased to nifedipine XL 30 mg daily.
-Outpatient dose of Bumex 2 mg PO BID was changed to Lasix 20 mg MW
-Outpatient dose of levothyroxine increased. TSH high due to noncompliance with meds at home.
-Patient had a favorable response to Lexapro 10 mg daily and then stopped taking after a month when it wasn't added to her pill packs and it was restarted this admission.
-Will arrange cardiology follow up.
HPI: Patient came to [facility] yesterday after an episode of syncope at home and cardiology has been consulted. Patient was attending a family dinner last night and she stood up from a seated position and attempted to climb stairs when she became less
responsive and appeared near syncopal. Family attended to patient and she lost consciousness and was lowered to the floor and avoided falling. Patient had another episode of syncope when she attempted to stand and again while seated in a chair,
sounds like 4 episodes of loss of consciousness in total. 911 was called and in [facility] the patient continued with lightheadedness and near syncope and was admitted. Patient is orthostatic by VS. Called patient's granddaughter, Megan, who is a PA with
local PCP office and we had an informative conversation. Patient lives alone, but has seen cognitive specialist for concerns about memory, especially dates and times. Patient has her meds delivered in monthly pill packs and reported to me that she
was compliant with her meds, but upon talking with family the patient's November pill pack is untouched and it is now December. Patient also says that she drink 1.5 shots of vodka a night and has done so for years, but that last night she had closer
to 5 shots and this was likely an accident as she usually measures her alcohol at home, but was drinking a pre-mixed alcoholic beverage last night and the quantity of alcohol wasn't clear. Patient has a h/o syncope with admissions for syncope 03/2022
and 10/2022. Other admissions have been for orthostasis and dizziness. Patient has a h/o cerebral aneurysm that is followed at [facility] and there was discussion of clipping at some point, but patient was busy caring for her who has now
. CT head overnight was unremarkable and MRI pending. TSH 39 and free T4 0.54 with levothyroxine noncompliance as mentioned.
Progress Note - Dye Machine Operator
Subjective
Date of Service: January 08, 2024
Feels well, wants to go home
Objective
Labs:
01/06/24 20:03
01/08/24 06:25
Labs
Hgb 11.1 g/dL (12.0-16.0) L 01/06/24 20:03
Hct 32.8 % (37.0-47.0) L 01/06/24 20:03
Plt Count 221 10^3/uL (130-400) 01/06/24 20:03
Sodium 140 mmol/L (135-145) 01/08/24 06:25
Potassium 4.2 mmol/L (3.5-5.1) 01/08/24 06:25
BUN 10 mg/dl (7-17) 01/08/24 06:25
Creatinine 1.0 mg/dL (0.6-1.0) 01/08/24 06:25
Glucose 87 mg/dl (70-99) 01/08/24 06:25
Troponins
01/07/24 01/07/24 01/08/24
10:27 16:15 00:06
Troponin I < 0.012 Cancelled < 0.012
Vital Signs and I&O:
Vital Signs
Temp Pulse Resp BP Pulse Ox
98.7 F 53 16 158/71 97
01/08/24 07:35 01/08/24 08:24 01/08/24 07:35 01/08/24 08:24 01/08/24 07:35
Vital Signs
Temp Pulse Resp BP Pulse Ox
98.7 F 53 16 158/71 97
01/08/24 07:35 01/08/24 08:24 01/08/24 07:35 01/08/24 08:24 01/08/24 07:35
Intake & Output
01/06/24 01/07/24 01/08/24 01/09/24
06:59 06:59 06:59 06:59
Intake Total 360 / 360 960 / 960
Balance 360 / 360 960 / 960
Physical Exam
Physical Exam
GEN: NAD. AAO x3.
HEENT: MMM
LUNGS: No audible wheeze
CV: SR on tele
ABD: ND
EXT: No edema B/L
NEURO: Gross non-focal
SKIN: No rash
--- NOTE | 2024-01-08 12:40 | W.PN.HOSP.TC ---
Today's Communication/Plan
-
repeat ortho VS, PT/OT and D/C
Assessment / Plan
Assessment / Plan
83yo F with hypothyroidism, HTN, COPD, GERD, HLD, orthostatic hypotension, BPPV, recurrent syncope, Hx of TIA, Linq implant brought with syncope. As per patient it reoccurred couple of times yesterday and patient does not remember the episode
itself. Family whitnessed and no report of seizure-like activity. On multiple past admissions ffor the same she was found to have multifactorial orthostatic hypotension as a cause of syncope. Was also orthostatic in ED and reeported dizziness 1 week
prior to admission. Patient still is on Bumex, taking pre-sorted meds delivered from pharmacy, however does not have clear understanding on what each pill is. Found with worsened hypothyroidism too. As per daughter - patient might not be compliant
with her meds as she is living alone and recently lost her .
Multifactorial syncope 2/2 orthostasis with diuretics, alcohol consumption, medication non-compliance. Discussed with family importance to ensure that patient is taking meds. Repeat TSH in 4 weeks with PCP. Cardiology will arrange for OP monitor.
Medically stable for d/c after PT/OT reassessment and repeated orthostatic VS
A/P:
#Recurrent syncope
#Non-obstructive CAD
#HLD
#Orthostatic hypotension
#labile BP with possible essential HTN
#Bradycardia
#BPPV
#HFpEF, chronic
Telemetry showed episodes of HR around 50
Echo without wall motion abnormalities, no no significant valvular disease and preserved EF
Trop WNL
Cardiology consult: stop Bumex, start Lasix MWF, will arrange outpatient monitor
Daily orthostatic VS
patient not describing vertigo at this time
#Elevated ddimer
CT chest and LE US neg for VTE
#Daily alcohol consumption
Counselled on cessation - patient is not interested at this time
#brain aneurism
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
Previously evaluated in [place] - recommend to follow with them
MRI brain - no acute findings
#COPD not in exacerbation
#HLD
#Hx of TIA/CVA
#CKD stage 3b
Base Cr around 1.1
cont home meds
#Hypothyroidism
increased Synthroid
Recheck TSH in 3-4 weeks with PCP
#T12 and L1 compression fractures with evidence of previous vertebroplasty
#Old L rib Fx
#DJD
Tylenol PRN
alcohol cessation strongly advised
DVT ppx hep
DNR/DNI
I have spent at least 39min reviewing chart, test results, communication with consultants and direct patient care
Anticipated Discharge: Today
Subjective/Interval History
-
Date of Service: January 08, 2024
Objective Data
-
Labs:
Laboratory Results
01/08/24
06:25
Sodium 140
Potassium 4.2
Chloride 106
Carbon Dioxide 26
BUN 10
Creatinine 1.0
Glucose 87
Calcium 8.0 L
Vital Signs:
Vital Signs
Temp Pulse Resp BP Pulse Ox
98.0 F 48 14 136/39 97
01/08/24 11:00 01/08/24 11:00 01/08/24 11:00 01/08/24 11:00 01/08/24 11:00
I&O
01/07/24 01/08/24 01/09/24
06:59 06:59 06:59
Intake Total 360 / 360 960 / 960
Balance 360 / 360 960 / 960
Review of Systems
-
History Source: Patient
Constitutional: Reports No Symptoms
Physical Exam
-
General: No Apparent Distress
HEENT: Normocephalic
Respiratory: Clear to Auscultation
Cardiac: Regular Rhythm
GI: Soft and Nondistended
Genito-urinary: No Costovertebral Tender
Musculoskeletal: No Clubbing, No Cyanosis and No Edema
Neuro: Awake, Alert, Oriented and AO x 3
Psych: Calm
[2024-01-08] MEDS: NSS 500 IV (13:28)
--- NOTE | 2024-01-08 15:09 | W.DCSUMMARY ---
Discharge Summary
Discharge Data
Date of Admission: 01/07/24
Date of Discharge: 01/08/24
-
Pending Results: No
Hospital Course
83yo F with hypothyroidism, HTN, COPD, GERD, HLD, orthostatic hypotension, BPPV, recurrent syncope, Hx of TIA, Linq implant brought with syncope. As per patient it reoccurred couple of times yesterday and patient does not remember the episode
itself. Family whitnessed and no report of seizure-like activity. On multiple past admissions ffor the same she was found to have multifactorial orthostatic hypotension as a cause of syncope. Was also orthostatic in ED and reeported dizziness 1 week
prior to admission. Patient still is on Bumex, taking pre-sorted meds delivered from pharmacy, however does not have clear understanding on what each pill is. Found with worsened hypothyroidism too. As per daughter - patient might not be compliant
with her meds as she is living alone and recently lost her .
Multifactorial syncope 2/2 orthostasis with diuretics, alcohol consumption, medication non-compliance. Discussed with family importance to ensure that patient is taking meds. Repeat TSH in 4 weeks with PCP. Cardiology will arrange for OP monitor.
Medically stable for d/c, was able to ambulate with RW with PT. Still had some orthostatic hypotension, but asymptomatic. Bumex stopped, nifedipine decreased, Lasix three times a week. Stable for d/c after IVF 1L bolus.
I have spent at least 36min discharging the patient
Patient was managed for:
#Recurrent syncope
#Non-obstructive CAD
#HLD
#Orthostatic hypotension
#labile BP with possible essential HTN
#Bradycardia
#BPPV
#HFpEF, chronic
#Elevated ddimer
#Daily alcohol consumption
#brain aneurism
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
#COPD not in exacerbation
#HLD
#Hx of TIA/CVA
#CKD stage 3b
#Hypothyroidism
#T12 and L1 compression fractures with evidence of previous vertebroplasty
#Old L rib Fx
#DJD
#Stable R carotid stensosis
Discharge Plan
-
Patient Disposition: Home (Routine Discharge)
Discharge Diagnosis/Procedures: Syncope
Diet: 2 Gram Sodium
Activity: As tolerated
Driving Restrictions: As prior to admission
Specialty Instructions: Weigh Daily- Call MD for wt gain/loss 3 lbs overnight/5 lbs in 1 week
Referrals:
Karen Chris MD [Family Provider] - in two to three weeks (repeat TSH)
Laura Funes MD [Active] - 01/15/24 1:40 pm (You are scheduled to see Dr. Laura Funes's physician stores assistant, Ladonna, at [facility] on 01/15/24 at 1:40 PM. Please call [phone] if you need to reschedule.)
Additional Discharge Medication Instructions: -STOP taking Bumex (bumetanide).
-Start taking Lasix (furosemide) 20 mg on Mondays, Wednesdays and Fridays only.
-Decrease your dose of Procardia XL (nifedipine XL) to just 30 mg ONCE a day.
-The cardiology office recommends that you abstain from all alcohol for now.
Prescriptions:
New
levothyroxine 125 mcg Tablet
125 mcg PO DAILY @ 0600 Qty: 30 0RF
furosemide 20 mg Tablet
20 mg PO MOWEFR@0800 Qty: 30 0RF
escitalopram oxalate 10 mg Tablet
10 mg PO DAILY Qty: 30 0RF
nifedipine 30 mg Tablet Extended Release
30 mg PO DAILY Qty: 30 0RF
Continued
rosuvastatin [Crestor] 40 mg Tablet
40 mg PO HS
aspirin 81 mg Tablet,Chewable
81 mg PO DAILY Qty: 0 0RF
omeprazole 40 mg capsule,delayed release(DR/EC)
40 mg PO BID
docusate sodium [Stool Softener] 100 mg Capsule
100 mg PO DAILY
montelukast 10 mg tablet
10 mg PO HS
albuterol sulfate 90 mcg/actuation HFA aerosol inhaler
2 puff INHALATION R Q4 PRN (Reason: sob/wheezing)
guaifenesin [Mucinex] 600 mg Tablet Extended Release 12hr
600 mg PO BID
meclizine 25 mg tablet
25 mg PO BID PRN (Reason: dizziness) Qty: 20 0RF
Discontinued
bumetanide 2 mg Tablet
2 mg PO DAILY Qty: 0 0RF
levothyroxine 112 mcg tablet
112 mcg PO DAILY
potassium chloride 20 mEq tablet,ER particles/crystals
20 meq PO BID
nifedipine 60 mg tablet extended release 24hr
60 mg PO BID
zolpidem 10 mg tablet
10 mg PO HS PRN (Reason: insomnia)
Discharge Orders:
Discharge Patient (As Directed); Ordered 01/08/24
Ordered By: Andi Arias
Discharge Date and Time
Print Language: TAMAZIGHT
[2024-01-08] MEDS: FLUAD (65 yr+) 2024-2025 FORMULA 0.5 ML IM (15:49)
== END 2024-01-08 16:10 | disposition home or self-care (01) | DRG 312 ==
LOC: 3 WEST ACU 13:19
PROVIDERS: Nurse Practitioner; ADMITTING PHYSICIAN Internal Medicine; ATTENDING PHYSICIAN Internal Medicine; CONSULT PHYSICIAN Internal Medicine Cardiovascular Disease; EMERGENCY PHYSICIAN Emergency Medicine; FAMILY PHYSICIAN Internal Medicine
DX: R55 Syncope and collapse (principal); I13.0 Hypertensive heart and chronic kidney disease with heart failure and stage 1 through stage 4 chronic kidney disease, or unspecified chronic kidney disease; I50.32 Chronic diastolic (congestive) heart failure; Z87.891 Personal history of nicotine dependence; E03.9 Hypothyroidism, unspecified; Z91.148 Patient's other noncompliance with medication regimen for other reason; E78.00 Pure hypercholesterolemia, unspecified; I95.1 Orthostatic hypotension; N18.32 Chronic kidney disease, stage 3b
CPT/HCPCS: 70450; 70544; 70551; 71275; 80048; 80053; 81003; 82077; 83735; 83880; 84439; 84443; 84484; 85025; 85379; 90662; 93005; 93306; 93880; 93970; 96360; 96361; 97116; 97161; 97165; 99285; G0008; Q9967

== ENCOUNTER 2024-08-04 15:25 | Emergency (ER) | payer OTHER, SELFPAY ==
[2024-08-04 15:34] VITALS: BP 215/73
--- NOTE | 2024-08-04 17:25 | ED.GENMED ---
History of Present Illness
General
Chief Complaint: Skin Surface Trauma
Source: patient
Exam Limitations: none
Time Seen by Provider: 08/04/24 17:13
History of Present Illness
History of Present Illness:
Note:
CHIEF COMPLAINT(S)
Laceration and pain in the leg following a fall.
HISTORY OF PRESENT ILLNESS
The patient is an 84-year-old female who presented after tripping and falling approximately four hours ago. She mentioned, 'I tripped and fell and I ripped the skin on my richardson.' The fall occurred while she was moving from the house to the garage,
carrying items, and tripped over a strip. She reported hitting her head during the fall but denied loss of consciousness and headache. The patient confirmed no use of blood thinners. She described neck stiffness but denied neck pain upon palpation.
The patient also reported leg pain.
A Computed Tomography scan of the head was ordered to rule out any intracranial injury.
SOCIAL DETERMINANTS AFFECTING HEALTH
The patient mentioned, 'I was carrying things' when she tripped, indicating potential household responsibilities that may affect her risk of falls.
PHYSICAL EXAM
- Neck: Patient reports stiffness, mild pain upon palpation.
- Leg: Large laceration approximately 15 centimeters in size with skin tearing. Pain present.
Nursing notes reviewed and vital signs reviewed.
PROBLEM LIST
Acute:
- Large skin tear on the leg
- Leg pain
- Neck stiffness
PLAN
1. Wound care with non-stick dressing, gauze, and wrap, to be changed regularly.
2. Conduct a Computed Tomography scan of the head and cervical spine
3. Obtain an X-ray of the richardson to assess for any potential underlying fractures.
4. Maintain wound moisture until further dressing can be applied.
5. Determine the status of tetanus vaccination.
DIFFERENTIAL DIAGNOSIS
The Differential Diagnosis includes, in no particular order and is not limited to:
1. Acute soft tissue injury of the leg
3. Subclinical fracture of the leg
4. Cervical strain or fracture
5. Concussion without loss of consciousness
6. Contusion of the head
Past History
Past History
ED Past Medical History: Asthma, CHF, COPD, HTN, Hypercholesterolemia, Hypothyroidism and Other (T-11 and L1 compression Fx, Ovarian cyst); Negative IDDM
ED Past Surgical History: Appendectomy, Cardiac (LINK), Cholecystectomy, Gynecological (Tubal, ), Orthopedic (Right hip replacement, Bilateral knee torn Meniscus), Tonsilectomy and Other (Abdominoplasty, Hernia repair, Vertebroplasty)
Social History
Tobacco: Former smoker
Alcohol: Daily (Vodka 1)
Drug: None
Personal:
Living: with family
Employment: Employed ([employer])
Family History
Family History: CAD and Asthma
Phy Exam
Physical Exam
Physical Exam:
see above
Course
Orders/Labs/Results
Orders:
Orders
08/04/24 15:42
CT Head W/o Iv Contrast Urgent
Comment:
Reason For Exam: fall, head strike
08/04/24 17:28
CT Cervical Spine W/o Iv Contr Urgent
Comment:
Reason For Exam: fall, pain
08/04/24 17:45
CR Leg Tibia/fibula Right 2 Vw Urgent
Comment:
Reason For Exam: fall
Vital Signs
Initial and Last Documented VS:
Initial Vital Signs
Temp Pulse Resp BP Pulse Ox
98.6 F 51 18 215/73 97
08/04/24 15:34 08/04/24 15:34 08/04/24 15:34 08/04/24 15:34 08/04/24 15:34
Last Documented Vital Signs
Temp Pulse Resp BP Pulse Ox
98.6 F 51 18 215/73 97
08/04/24 15:34 08/04/24 15:34 08/04/24 15:34 08/04/24 15:34 08/04/24 15:34
*Critical Care Note
Total Time (30-74mins, 75-104mins- exclusive of procedures): Not Applicable
Update Note
Update Note:
CT head and cervical spine negative x-ray right leg negative. The wound was dressed. Will start on Secondary to the size of the wound and will refer to the wound care center.
ED Attending Note
-
Portions of this chart may have been created with voice recognition software.� Occasional wrong word or��sound alike� substitutions may have occurred due to the inherent limitations of voice recognition software.
Discharge Plan
Departure
Patient Disposition: Home (Routine Discharge)
Date of Disposition: 08/04/24
Time of Disposition: 19:03
Patient with high blood pressure during this ER visit?: No
Discharge Problem:
Skin tear
Instructions: Wound Care (DC)
Prescriptions:
New
cephalexin 500 mg capsule
500 mg PO Q8H 7 Days Qty: 21 0RF
No Action
rosuvastatin [Crestor] 40 mg Tablet
40 mg PO HS
aspirin 81 mg Tablet,Chewable
81 mg PO DAILY Qty: 0 0RF
omeprazole 40 mg capsule,delayed release(DR/EC)
40 mg PO BID
docusate sodium [Stool Softener] 100 mg Capsule
100 mg PO DAILY
montelukast 10 mg tablet
10 mg PO HS
albuterol sulfate 90 mcg/actuation HFA aerosol inhaler
2 puff INHALATION R Q4 PRN (Reason: sob/wheezing)
guaifenesin [Mucinex] 600 mg Tablet Extended Release 12hr
600 mg PO BID
meclizine 25 mg tablet
25 mg PO BID PRN (Reason: dizziness) Qty: 20 0RF
levothyroxine 125 mcg Tablet
125 mcg PO DAILY @ 0600 Qty: 30 0RF
furosemide 20 mg Tablet
20 mg PO MOWEFR@0800 Qty: 30 0RF
escitalopram oxalate 10 mg Tablet
10 mg PO DAILY Qty: 30 0RF
nifedipine 30 mg Tablet Extended Release
30 mg PO DAILY Qty: 30 0RF
Referrals:
Wound Care Center [Outside]
John Paul Fall I., [Family Provider, Internal Medicine]
Activity Restrictions/Additional Instructions:
Change dressing daily and apply antibacterial ointment nonstick gauze and a gauze wrap. Follow-up with wound care center. Take antibiotic as directed. Return if worse otherwise follow-up.
Interventions
Interventions:
*Risk Screen - Suicide Last Done: 08/04/24 15:34
*General Assessment Last Done: 08/04/24 15:34
*Neglect/Abuse Screening Last Done: 08/04/24 15:34
ED-Skin Assessment Last Done: 08/04/24 17:34
Discharge Date and Time
Print Language: MONTSERRATIAN
== END 2024-08-04 19:34 | disposition home or self-care (01) ==
LOC: EMR 15:25
PROVIDERS: EMERGENCY PHYSICIAN Emergency Medicine; FAMILY PHYSICIAN Internal Medicine
DX: S81.812A Laceration without foreign body, left lower leg, initial encounter (principal); W01.0XXA Fall on same level from slipping, tripping and stumbling without subsequent striking against object, initial encounter; Z87.891 Personal history of nicotine dependence
CPT/HCPCS: 99285; 70450; 72125; 73590

== ENCOUNTER 2024-08-13 14:20 | Emergency (ER) | payer OTHER, SELFPAY ==
[2024-08-13 14:24] VITALS: BP 167/82
--- NOTE | 2024-08-13 17:06 | ED.GENMED ---
History of Present Illness
General
Chief Complaint: Skin Problem
Source: patient, records, family and disabilities caregiver
Time Seen by Provider: 08/13/24 16:04
History of Present Illness
History of Present Illness:
Note:
CHIEF COMPLAINT(S)
Leg wound and hematoma.
HISTORY OF PRESENT ILLNESS
The patient is an 84-year-old female presenting with a leg wound following an incident of trauma resulting in large skin tear. The initial presentation of the wound included the application of large dressings due to inability to approximate the
wound and subsequent care from visiting nurses until patient could be seen by wound care center. The patient reports ongoing pain at the site but denies any numbness, tingling, or difficulty in moving the leg. Swelling is noted, but there have been
no major color changes except near the wound. The patient denies any history of peripheral vascular disease, arterial disease, diabetes, or use of anticoagulant medications. Vital signs show no signs of fever or other systemic symptoms. The patient
reports difficulty obtaining care through wound care centers due to limited availability noting she was unable to be seen until August 26. No new trauma to the leg although patient does note that more proximally she has developed a blood blister but
that it is not any more painful than the rest of her leg
ADDITIONAL HISTORY OBTAINED FROM SOURCES OTHER THAN THE PATIENT
According to the visiting nurse, there was difficulty palpating a pulse initially, but current evaluation shows a strong pulse in the foot.
Past History
Past History
ED Past Medical History: Asthma, CHF, COPD, HTN, Hypercholesterolemia, Hypothyroidism and Other (T-11 and L1 compression Fx, Ovarian cyst); Negative IDDM
ED Past Surgical History: Appendectomy, Cardiac (LINK), Cholecystectomy, Gynecological (Tubal, ), Orthopedic (Right hip replacement, Bilateral knee torn Meniscus), Tonsilectomy and Other (Abdominoplasty, Hernia repair, Vertebroplasty)
Social History
Tobacco: Former smoker
Alcohol: Daily (Vodka 1)
Drug: None
Personal:
Living: with family
Employment: Employed ([employer])
Family History
Family History: CAD and Asthma
Review of Systems
Review of Systems
All Other Systems: ROS reviewed and negative except as documented in HPI and ROS
Phy Exam
Physical Exam
Physical Exam:
GENERAL: Alert , in no apparent distress
EYE: conjunctiva clear
Head: Normocephalic atraumatic
NECK: Supple,
ENT: mmm.
LUNGS: no acute respiratory distress
NEUROLOGICAL: Alert and oriented
SKIN: Warm and dry, there is large approximately 8 cm curvilinear laceration to the anterior right tibia with surrounding ecchymosis and tenderness but no increased warmth or erythema. Dried blood along the wound edges. Wound is not fully
approximated. There is a approximate 2-1/2 cm blood blister at the most proximal portion of the wound which is minimally tender.
MUSCULOSKELETAL: Soft tissue swelling to the right lower extremity below the knee. There is easily palpable pedal and tibial pulse. Cap refill is less than 2 seconds. Sensation is grossly intact to light touch. Patient allows for full range of
motion of the foot ankle and knee with minimal difficulty.
PSYCH: Normal and appropriate interaction.
Scores
Heart Failure Risk
Heart Failure Risk Score: Not Applicable
Heart Score for Chest Pain Patients
STEMI patient?: Not applicable
Withdrawal Assessment of Alcohol
Withdrawal Assessment Completed?: Not applicable
Course
Orders/Labs/Results
Orders:
Orders
08/13/24 16:29
US Periph Venous LOWER Ext RT Urgent
Comment:
Reason For Exam: hematoma/edema, r/o DVT
08/13/24 17:38
Acetaminophen [Tylenol] 650 mg PO NOW STA
Vital Signs
Initial and Last Documented VS:
Initial Vital Signs
Temp Pulse Resp BP Pulse Ox
98.0 F 65 20 167/82 97
08/13/24 14:24 08/13/24 14:24 08/13/24 14:24 08/13/24 14:24 08/13/24 14:24
Last Documented Vital Signs
Temp Pulse Resp BP Pulse Ox
98.0 F 56 18 185/76 94
08/13/24 14:24 08/13/24 17:47 08/13/24 17:47 08/13/24 17:47 08/13/24 17:47
MDM/Problems Addressed
Differential Diagnosis Includes:
The Differential Diagnosis includes, in no particular order and is not limited to:
1. Hematoma
2. Skin Tear
3. Soft Tissue Infection
4. Cellulitis
5. Deep Vein Thrombosis (DVT)
6. Venous Insufficiency
7. Compartment Syndrome
8. Peripheral Vascular Disease
9. Lymphedema
MDM/Problems Addressed:
- Continue with localized wound care and dressing changes every 12 to 24 hours using a Vaseline-based gauze
- Recommend icing and elevation of the leg to manage swelling.
- Will obtain ultrasound here to rule out DVT although my suspicion for this is much less
- Follow up with the visiting nurse within 24 to 48 hours to monitor wound progression.
- Patient was already discharged on antibiotics and continues to take this medication as prescribed
- I do not have concern for compartment syndrome as patient has easily palpable pulses, extremity is warm well-perfused, normal range of motion. I did also offer to aspirate the blood blister however patient and family declined at this time due to
potential for increased risk of infection
*Radiology
Radiology exam reviewed: preliminary read by ED provider (Ultrasound negative for DVT)
*Pulse Oximetry
SaO2: 97
Oxygen Mode of Delivery: Room air
*Critical Care Note
Total Time (30-74mins, 75-104mins- exclusive of procedures): Not Applicable
Data Reviewed
Review of Other/Old Records Reveals: Labs, Records and Testing
Patient Management
Discussion with other providers: Other (visiting nurse)
Escalation/DeEscalation of care consider admission/obs:
Patient's ultrasound is negative for DVT. I notified the visiting nurse via [place] text about patient's workup here well as continue treatment plan. They will continue to follow-up with the patient on an outpatient basis. Encourage patient
continue with her appointment as scheduled with the wound care center.
ED Attending Note
-
Portions of this chart may have been created with voice recognition software.� Occasional wrong word or��sound alike� substitutions may have occurred due to the inherent limitations of voice recognition software.
Discharge Plan
Departure
Patient Disposition: Home (Routine Discharge)
Date of Disposition: 08/13/24
Time of Disposition: 17:35
Patient with high blood pressure during this ER visit?: Yes
Discharge Problem:
Hematoma of right lower extremity
Instructions: Wound Care (DC)
Prescriptions:
No Action
rosuvastatin [Crestor] 40 mg Tablet
40 mg PO HS
aspirin 81 mg Tablet,Chewable
81 mg PO DAILY Qty: 0 0RF
omeprazole 40 mg capsule,delayed release(DR/EC)
40 mg PO BID
docusate sodium [Stool Softener] 100 mg Capsule
100 mg PO DAILY
montelukast 10 mg tablet
10 mg PO HS
albuterol sulfate 90 mcg/actuation HFA aerosol inhaler
2 puff INHALATION R Q4 PRN (Reason: sob/wheezing)
guaifenesin [Mucinex] 600 mg Tablet Extended Release 12hr
600 mg PO BID
meclizine 25 mg tablet
25 mg PO BID PRN (Reason: dizziness) Qty: 20 0RF
levothyroxine 125 mcg Tablet
125 mcg PO DAILY @ 0600 Qty: 30 0RF
furosemide 20 mg Tablet
20 mg PO MOWEFR@0800 Qty: 30 0RF
escitalopram oxalate 10 mg Tablet
10 mg PO DAILY Qty: 30 0RF
nifedipine 30 mg Tablet Extended Release
30 mg PO DAILY Qty: 30 0RF
cephalexin 500 mg capsule
500 mg PO Q8H 7 Days Qty: 21 0RF
Referrals:
Karen Chris MD [Family Provider, Internal Medicine]
Interventions
Interventions:
*Risk Screen - Suicide Last Done: 08/13/24 15:48
*General Assessment Last Done: 08/13/24 14:24
*Neglect/Abuse Screening Last Done: 08/13/24 15:48
*ED- Fall Risk Assessment Last Done: 08/13/24 15:48
*ED COVID-19 Vaccine History Last Done: 08/13/24 15:48
*Nursing Disposition Last Done: 08/13/24 17:51
ED-Skin Assessment Last Done: 08/13/24 15:48
Discharge Date and Time
Discharge Date/Time: 08/13/24 17:51
Print Language: SOMALI
[2024-08-13 17:47] VITALS: BP 185/76
[2024-08-13] MEDS: TYLENOL 650 MG PO (17:47)
== END 2024-08-13 17:51 | disposition home or self-care (01) ==
LOC: EMR 14:20
PROVIDERS: EMERGENCY PHYSICIAN Student in an Organized Health Care Education/Training Program; FAMILY PHYSICIAN Internal Medicine
DX: S80.11XA Contusion of right lower leg, initial encounter (principal); X58.XXXA Exposure to other specified factors, initial encounter; E03.9 Hypothyroidism, unspecified; E78.00 Pure hypercholesterolemia, unspecified; I11.0 Hypertensive heart disease with heart failure; I50.9 Heart failure, unspecified; Z87.891 Personal history of nicotine dependence; Z90.49 Acquired absence of other specified parts of digestive tract
CPT/HCPCS: 99284; 93971

== ENCOUNTER → 2024-08-26 12:34 | Outpatient (REF) | payer OTHER, SELFPAY | LOC: WOUND 12:34 | PROVIDERS: ATTENDING PHYSICIAN Surgery; FAMILY PHYSICIAN Internal Medicine | DX: L97.212 Non-pressure chronic ulcer of right calf with fat layer exposed (principal); I50.32 Chronic diastolic (congestive) heart failure; I10 Essential (primary) hypertension; Z86.73 Personal history of transient ischemic attack (TIA), and cerebral infarction without residual deficits | CPT/HCPCS: 99203 ==

== ENCOUNTER → 2024-09-02 13:16 | Outpatient (REF) | payer OTHER, SELFPAY | LOC: WOUND 13:16 | PROVIDERS: ATTENDING PHYSICIAN Surgery | DX: L97.212 Non-pressure chronic ulcer of right calf with fat layer exposed (principal); I50.32 Chronic diastolic (congestive) heart failure; I10 Essential (primary) hypertension; Z86.73 Personal history of transient ischemic attack (TIA), and cerebral infarction without residual deficits | CPT/HCPCS: 99213 ==

== ENCOUNTER → 2024-09-09 14:53 | Outpatient (REF) | payer OTHER, SELFPAY | LOC: WOUND 14:53 | PROVIDERS: ATTENDING PHYSICIAN Surgery; FAMILY PHYSICIAN Internal Medicine | DX: L97.212 Non-pressure chronic ulcer of right calf with fat layer exposed (principal); I50.32 Chronic diastolic (congestive) heart failure; Z86.73 Personal history of transient ischemic attack (TIA), and cerebral infarction without residual deficits; I11.0 Hypertensive heart disease with heart failure | CPT/HCPCS: 99213 ==

== ENCOUNTER → 2024-09-16 13:25 | Outpatient (REF) | payer OTHER, SELFPAY | LOC: WOUND 13:25 | PROVIDERS: ATTENDING PHYSICIAN Surgery | DX: L97.212 Non-pressure chronic ulcer of right calf with fat layer exposed (principal); I50.32 Chronic diastolic (congestive) heart failure; I10 Essential (primary) hypertension; Z86.73 Personal history of transient ischemic attack (TIA), and cerebral infarction without residual deficits | CPT/HCPCS: 99213 ==

== ENCOUNTER → 2024-09-23 13:55 | Outpatient (REF) | payer OTHER, SELFPAY | LOC: WOUND 13:55 | PROVIDERS: ATTENDING PHYSICIAN Surgery; FAMILY PHYSICIAN Internal Medicine | DX: L97.212 Non-pressure chronic ulcer of right calf with fat layer exposed (principal); I50.32 Chronic diastolic (congestive) heart failure; I10 Essential (primary) hypertension; Z86.73 Personal history of transient ischemic attack (TIA), and cerebral infarction without residual deficits | CPT/HCPCS: 99213 ==

== ENCOUNTER → 2024-09-30 10:14 | Outpatient (REF) | payer OTHER, SELFPAY | LOC: WOUND 10:14 | PROVIDERS: ATTENDING PHYSICIAN Surgery; FAMILY PHYSICIAN Internal Medicine | DX: L97.212 Non-pressure chronic ulcer of right calf with fat layer exposed (principal); I50.32 Chronic diastolic (congestive) heart failure; I10 Essential (primary) hypertension; Z86.73 Personal history of transient ischemic attack (TIA), and cerebral infarction without residual deficits | CPT/HCPCS: 11042 ==

== ENCOUNTER → 2024-10-14 11:12 | Outpatient (REF) | payer OTHER, SELFPAY | LOC: WOUND 11:12 | PROVIDERS: ATTENDING PHYSICIAN Surgery; FAMILY PHYSICIAN Internal Medicine | DX: L97.212 Non-pressure chronic ulcer of right calf with fat layer exposed (principal); I50.32 Chronic diastolic (congestive) heart failure; I10 Essential (primary) hypertension; Z86.73 Personal history of transient ischemic attack (TIA), and cerebral infarction without residual deficits | CPT/HCPCS: 99213 ==

== ENCOUNTER → 2024-11-04 11:23 | Outpatient (REF) | payer OTHER, SELFPAY | LOC: WOUND 11:23 | PROVIDERS: ATTENDING PHYSICIAN Surgery; FAMILY PHYSICIAN Internal Medicine | DX: L97.212 Non-pressure chronic ulcer of right calf with fat layer exposed (principal); I50.32 Chronic diastolic (congestive) heart failure; I10 Essential (primary) hypertension; Z86.73 Personal history of transient ischemic attack (TIA), and cerebral infarction without residual deficits | CPT/HCPCS: 99213 ==

== ENCOUNTER 2025-02-03 15:27 | Inpatient (IN) | payer OTHER, SELFPAY ==
[2025-02-03 11:53] VITALS: BP 149/123
[2025-02-03 12:17] LABS: Hematocrit 34.1 % (37.0-47.0); Hemoglobin 10.8 g/dL (12.0-16.0); Mean Corp Hgb Conc. 31.7 g/dL (33.0-37.0); Mean Corpuscular Volume 88.8 fL (81.0-99.0); Nucleated Red Blood Cells % 0 %; Platelet Count 338 10^3/uL (130-400); Red Cell Dist. Width 15.5 % (11.5-14.5)
[2025-02-03 12:30] LABS: ALT (SGPT) 13 U/L (0-35); AST (SGOT) 26 U/L (14-36); Albumin 3.8 g/dl (3.5-5.0); Alkaline Phosphatase 56 U/L (38-126); Blood Urea Nitrogen 26 mg/dl (7-17); Calcium 9.1 mg/dl (8.4-10.2); Carbon Dioxide 30 mmol/L (22-30); Chloride 98 mmol/L (98-107); Glucose 158 mg/dl (70-99); Potassium 3.7 mmol/L (3.5-5.1); Sodium 134 mmol/L (135-145); Total Protein 6.8 g/dl (6.3-8.2); eGFR 37.56
[2025-02-03 13:10] VITALS: BMI 28.7
--- NOTE | 2025-02-03 13:14 | ED.GENMED ---
History of Present Illness
<Zachery Gold PA-C - Last Filed: 02/03/25 14:13>
General
Chief Complaint: Skin Problem
Source: patient
Time Seen by Provider: 02/03/25 12:53
History of Present Illness
History of Present Illness:
84-year-old female with past medical history of hypertension, CHF, COPD, previous aneurysm repair presenting to the emergency department for evaluation of a wound to the right leg that she sustained about 2 to 3 weeks ago and an accidental fall,
secondarily was given a prescription for doxycycline 6 days ago for mild URI but also for the wound, the redness, pain and drainage have worsened which is what prompted family to bring the patient to the ER today. Patient denies any fevers, any new
injuries. No other concerns at this time.
Past History
<Zachery Gold PA-C - Last Filed: 02/03/25 14:13>
Past History
ED Past Medical History: Asthma, CHF, COPD, HTN, Hypercholesterolemia, Hypothyroidism and Other (T-11 and L1 compression Fx, Ovarian cyst); Negative IDDM
ED Past Surgical History: Appendectomy, Cardiac (LINK), Cholecystectomy, Gynecological (Tubal, ), Orthopedic (Right hip replacement, Bilateral knee torn Meniscus), Tonsilectomy and Other (Abdominoplasty, Hernia repair, Vertebroplasty)
Social History
Tobacco: Former smoker
Alcohol: Daily (Vodka 1)
Drug: None
Personal:
Living: with family
Employment: Employed ([employer])
Family History
Family History: CAD and Asthma
Review of Systems
<Zachery Gold PA-C - Last Filed: 02/03/25 14:13>
Review of Systems
All Other Systems: ROS reviewed and negative except as documented in HPI and ROS
Phy Exam
<Zachery Gold PA-C - Last Filed: 02/03/25 14:13>
Physical Exam
Physical Exam:
GENERAL: Alert , in no apparent distress
EYE: conjunctiva clear
Head: Normocephalic atraumatic
NECK: Supple,
ENT: mmm.
LUNGS: no acute respiratory distress
NEUROLOGICAL: Alert and oriented
SKIN: Warm and dry, large triangular shaped wound to the right anteromedial tib-fib region with surrounding erythema and dusky appearance to the lower extremities likely consistent with a peripheral vascular disease. The wound is purulent, no
bleeding.
MUSCULOSKELETAL: Palpable pedal and tibial pulses bilaterally. Cap refill less than 2 seconds, sensation grossly intact to light touch
PSYCH: Normal and appropriate interaction.
Scores
<Zachery Gold PA-C - Last Filed: 02/03/25 14:13>
Heart Failure Risk
Heart Failure Risk Score: Not Applicable
Heart Score for Chest Pain Patients
STEMI patient?: Not applicable
Withdrawal Assessment of Alcohol
Withdrawal Assessment Completed?: Not applicable
Course
<Zachery Gold PA-C - Last Filed: 02/03/25 14:13>
Orders/Labs/Results
Orders:
Orders
02/03/25 12:04
C-Reactive Protein Urgent
Comment: ADD ON
Complete Blood Count/With Diff Urgent
Comprehensive Metabolic Panel Urgent
Erythrocyte Sed Rate Urgent
Comment: ADD ON
02/03/25 13:06
Piperacillin/Tazo 3.375 Gram [Zosyn] 3.375 gram in 50 ml IV NOW
CR Leg Tibia/fibula Right 2 Vw Urgent
Comment:
Reason For Exam: wound
02/03/25 13:07
Add On- LAB Urgent
Tests Added?: esr/crp
02/03/25 13:18
Vancomycin [Vancocin] 1,500 mg 0.9% Sodium Chloride 500 ml [Nss] 500 ml IV NOW
02/03/25 13:37
Wound Culture [Wound/Abscess/Other Culture] Urgent
LEONIDES Source: Leg
Specimen Description: Right
Date Specimen was Collected: 02/03/25
Time Specimen was Collected: 13:31
02/03/25 14:45
Lower Ext Arterial & JILL US [US Periph Art LOWER Ext w JILL] Routine
Comment:
Reason For Exam: non-healing wound RLE
02/03/25 14:46
Admit/Transfer Patient As Directed
Co-Sign Provider:
Level of Care: Inpatient admission
Assign to:: Medical/Surgical
Physician / Group: Htay
Diagnosis: RLE Cellulitis, Non-Healing Wound
Reason for Hospitalization: IV abx
Expected length of stay greater than two midnights?: Yes
ELOS- Estimated Length of Stay in days: 3
I certify the patient meets the requirements for IP care: Yes
PRN Pain Medication Management As Directed
May give lesser potent ordered pain med per pt: Yes
preference::
Protocol:: Medication orders for pain may be administered in a
manner that supports deferring to patient preference
when the pt is:
- Requesting an ordered lesser potent pain medication.
Least to most potent pain medications are defined
as: acetaminophen < NSAID < tramadol < opioids
(morphine, oxycodone, hydromorphone).
- Requesting a lesser dose of the same medication IF
ORDERED.
- Requesting a less intrusive route of administration
if both routes are prescribed by the provider (PO <
IV).
02/03/25 14:48
Code Status As Directed
Resuscitation Status: Do not resuscitate
Reached after discussion with pt or family/Healthcare POA: Yes
02/03/25 14:49
DNR Bracelet Application ONCE
Abnormal Lab Results
02/03/25
12:04
RBC 3.84 L 10^6/uL
(4.20-5.40)
Hgb 10.8 L g/dL
(12.0-16.0)
Hct 34.1 L %
(37.0-47.0)
MCHC 31.7 L g/dL
(33.0-37.0)
RDW 15.5 H %
(11.5-14.5)
MPV 10.6 H fL
(7.4-10.4)
ESR 80 H mm/hour
(0-20)
Sodium 134 L mmol/L
(135-145)
BUN 26 H mg/dl
(7-17)
Creatinine 1.4 H mg/dL
(0.6-1.0)
Glucose 158 H mg/dl
(70-99)
C-Reactive Protein 18.70 H mg/L
(0.0-10.00)
02/03/25 12:04
02/03/25 12:04
Vital Signs
Initial and Last Documented VS:
Initial Vital Signs
Temp Pulse Resp BP Pulse Ox
97.8 F 61 18 149/123 96
02/03/25 11:53 02/03/25 11:53 02/03/25 11:53 02/03/25 11:53 02/03/25 11:53
Last Documented Vital Signs
Temp Pulse Resp BP Pulse Ox
97.8 F 61 16 149/123 96
02/03/25 11:53 02/03/25 11:53 02/03/25 13:41 02/03/25 11:53 02/03/25 13:21
<Babar Keating MD - Last Filed: 02/03/25 15:21>
Orders/Labs/Results
Orders:
Orders
02/03/25 12:04
C-Reactive Protein Urgent
Comment: ADD ON
Complete Blood Count/With Diff Urgent
Comprehensive Metabolic Panel Urgent
Erythrocyte Sed Rate Urgent
Comment: ADD ON
02/03/25 13:06
Piperacillin/Tazo 3.375 Gram [Zosyn] 3.375 gram in 50 ml IV NOW
CR Leg Tibia/fibula Right 2 Vw Urgent
Comment:
Reason For Exam: wound
02/03/25 13:07
Add On- LAB Urgent
Tests Added?: esr/crp
02/03/25 13:18
Vancomycin [Vancocin] 1,500 mg 0.9% Sodium Chloride 500 ml [Nss] 500 ml IV NOW
02/03/25 13:37
Wound Culture [Wound/Abscess/Other Culture] Urgent
LEONIDES Source: Leg
Specimen Description: Right
Date Specimen was Collected: 02/03/25
Time Specimen was Collected: 13:31
02/03/25 14:45
Lower Ext Arterial & JILL US [US Periph Art LOWER Ext w JILL] Routine
Comment:
Reason For Exam: non-healing wound RLE
02/03/25 14:46
Admit/Transfer Patient As Directed
Co-Sign Provider:
Level of Care: Inpatient admission
Assign to:: Medical/Surgical
Physician / Group: Htay
Diagnosis: RLE Cellulitis, Non-Healing Wound
Reason for Hospitalization: IV abx
Expected length of stay greater than two midnights?: Yes
ELOS- Estimated Length of Stay in days: 3
I certify the patient meets the requirements for IP care: Yes
PRN Pain Medication Management As Directed
May give lesser potent ordered pain med per pt: Yes
preference::
Protocol:: Medication orders for pain may be administered in a
manner that supports deferring to patient preference
when the pt is:
- Requesting an ordered lesser potent pain medication.
Least to most potent pain medications are defined
as: acetaminophen < NSAID < tramadol < opioids
(morphine, oxycodone, hydromorphone).
- Requesting a lesser dose of the same medication IF
ORDERED.
- Requesting a less intrusive route of administration
if both routes are prescribed by the provider (PO <
IV).
02/03/25 14:48
Code Status As Directed
Resuscitation Status: Do not resuscitate
Reached after discussion with pt or family/Healthcare POA: Yes
02/03/25 14:49
DNR Bracelet Application ONCE
Abnormal Lab Results
02/03/25
12:04
RBC 3.84 L 10^6/uL
(4.20-5.40)
Hgb 10.8 L g/dL
(12.0-16.0)
Hct 34.1 L %
(37.0-47.0)
MCHC 31.7 L g/dL
(33.0-37.0)
RDW 15.5 H %
(11.5-14.5)
MPV 10.6 H fL
(7.4-10.4)
ESR 80 H mm/hour
(0-20)
Sodium 134 L mmol/L
(135-145)
BUN 26 H mg/dl
(7-17)
Creatinine 1.4 H mg/dL
(0.6-1.0)
Glucose 158 H mg/dl
(70-99)
C-Reactive Protein 18.70 H mg/L
(0.0-10.00)
02/03/25 12:04
02/03/25 12:04
Vital Signs
Initial and Last Documented VS:
Initial Vital Signs
Temp Pulse Resp BP Pulse Ox
97.8 F 61 18 149/123 96
02/03/25 11:53 02/03/25 11:53 02/03/25 11:53 02/03/25 11:53 02/03/25 11:53
Last Documented Vital Signs
Temp Pulse Resp BP Pulse Ox
97.8 F 61 16 149/123 96
02/03/25 11:53 02/03/25 11:53 02/03/25 13:41 02/03/25 11:53 02/03/25 13:21
<Zachery Gold PA-C - Last Filed: 02/03/25 14:13>
MDM/Problems Addressed
Differential Diagnosis Includes:
Cellulitis/abscess
Peripheral vascular disease wound
PAD
Patient without history of diabetes so no concern for diabetic ulcer
Osteomyelitis
MDM/Problems Addressed:
84-year-old female presenting to the ER for evaluation of a right lower extremity wound that has been ongoing for about 2 to 3 weeks, 6 days of doxycycline without any improvement. No fevers, patient is overall very well-appearing. Given patient
has been on an antibiotic for 6 days and wound only seems to be worsening combined with what appears to be a history of peripheral vascular disease and her age I do feel at this time patient needs admission for IV antibiotics and will likely need
outpatient wound care for further treatment
<Zachery Gold PA-C - Last Filed: 02/03/25 14:13>
*Radiology
Radiology exam reviewed: preliminary read by ED provider (No definitive osteomyelitis)
*Pulse Oximetry
SaO2: 96
Oxygen Mode of Delivery: Room air
Patient hypoxic: no
*Critical Care Note
Total Time (30-74mins, 75-104mins- exclusive of procedures): Not Applicable
<Zachery Gold PA-C - Last Filed: 02/03/25 14:13>
Patient Management
Discussion with other providers: Hospitalist
Escalation/DeEscalation of care consider admission/obs:
hospitalist team accepts for continued evaluation and treatment of early healing wound to the right lower extremity.
ED Attending Note
<Zachery Gold PA-C - Last Filed: 02/03/25 14:13>
-
Portions of this chart may have been created with voice recognition software.� Occasional wrong word or��sound alike� substitutions may have occurred due to the inherent limitations of voice recognition software.
<Babar Keating MD - Last Filed: 02/03/25 15:21>
ED Attending Note
Patient seen and examined by attending physician: Yes
ED Attending Note:
Patient presents to ED secondary to severe nonhealing right lower leg wound over the past 3 weeks, despite taking doxycycline for the past 6 days. Patient had mechanical fall 3 weeks ago, which caused laceration over her right lower leg. Denies
fever or chills. Denies nausea or vomiting. Patient reports increased drainage from the wound, including blood and pus. Denies loss of sensation or weakness. Denies previous history of similar symptoms.
Physical Exam
General: mild distress, not acutely ill. afebrile
Head: nc/at. eomi
Neck: supple. normal range of motion
Neuro: alert and oriented x 3. no focal neurological deficits
Skin: RLE: an approx 2cm x 3cm ulcerated wound over anterior aspect, without active drainage. Mild tenderness to palpation
Psychiatric: well kept. interactive and cooperative
Extremities: no edema. no calf tenderness.
History and exam concerning for worsening wound, failing outpatient therapy. Will admit for iv abx and wound care consultation for potential wound debridement
Discharge Plan
Departure
Patient Disposition: Admit
Date of Disposition: 02/03/25
Time of Disposition: 14:04
Presentation/result/management discussed w/ accepting MD/DO: Hospitalist
Discharge Problem:
Abscess of leg, right, Peripheral vascular disease
Prescriptions:
No Action
rosuvastatin [Crestor] 40 mg Tablet
40 mg PO HS
aspirin 81 mg Tablet,Chewable
81 mg PO DAILY Qty: 0 0RF
omeprazole 40 mg capsule,delayed release(DR/EC)
40 mg PO BID
docusate sodium [Stool Softener] 100 mg Capsule
100 mg PO DAILY
montelukast 10 mg tablet
10 mg PO HS
albuterol sulfate 90 mcg/actuation HFA aerosol inhaler
2 puff INHALATION R Q4HPRN PRN (Reason: sob/wheezing)
escitalopram oxalate 10 mg Tablet
10 mg PO DAILY Qty: 30 0RF
nifedipine 30 mg Tablet Extended Release
30 mg PO DAILY Qty: 30 0RF
furosemide 40 mg Tablet
40 mg PO DAILY
amlodipine 5 mg Tablet
5 mg PO DAILY
nystatin 100,000 unit/gram Powder
1 applic TOPICAL BID
zolpidem 10 mg Tablet
10 mg PO HS
doxycycline hyclate 100 mg Tablet
100 mg PO BID
Rx Instructions:
started 01/28/25 lasting 7 days - finish on 02/04/25 MO
mometasone 0.1 % Cream
1 applic TOPICAL DAILY
levothyroxine 125 mcg tablet
125 mcg PO DAILY
Referrals:
Karen Chris MD [Family Provider, Internal Medicine]
Interventions
Interventions:
*Risk Screen - Suicide Last Done: 02/03/25 11:53
*General Assessment Last Done: 02/03/25 13:40
*Neglect/Abuse Screening Last Done: 02/03/25 13:11
*ED COVID-19 Vaccine History Last Done: 02/03/25 12:58
*ED Influenza Vaccine History Last Done: 02/03/25 11:53
[facility] Fall Risk Assessment Tool Last Done: 02/03/25 13:40
ED-Skin Assessment Last Done: 02/03/25 14:29
Discharge Date and Time
Print Language: UPPER SORBIAN
[2025-02-03] MEDS: ZOSYN 50 IV ×2 (13:42→21:53)
--- NOTE | 2025-02-03 14:19 | HPS.HSE ---
Addendum entered and electronically signed by Halima Tinsley PA-C 02/03/25 20:52:
Update: Essential Hypertension
After additional review of medication list it appears patient has not filled the nifedipine for quite from time, and it is no longer listed on her outpatient medication list. Nifedipine will be placed on hold until able to confirm medication list
with family.
Continue amlodipine
Original Note:
Family Physician
-
Family Physician: Karen Chris
Chief Complaint
-
Right Lower Extremity Wound
History of Present Illness
Patient is an 84 y/o female past medical history of CAD, CHF, HTN and Asthma / COPD who presents with a non-healing wound of her right lower extremity. Patient reports about 2-3 weeks ago she dropped a heavy [place] ornament and hit her leg
causing the wound. She was doing local wound care at home by keeping it clean and applying antibiotic ointment. About a week ago she developed a fever and was prescribed doxycycline for a URI and for the wound. Patient has noticed increased
purulent drainage from the wound, and now notes surrounding redness. She denies any recurrence of the fever since starting doxycycline.
Medical History
Past Medical History
Past Medical History: Reports Other
Additional Past Medical History:
Nonobstructive Coronary Artery Disease
Chronic HFpEF
Essential Hypertension
Hyperlipidemia
Orthostatic Hypotension
Asthma / COPD
Hypothyroidism
Insomnia
TIA / Cerebral Aneurysm
Past Surgical History: Reports Other
Additional Past Surgical History:
Right Hip Replacement
Bilateral Knee Meniscus
Vertebroplasty
Cholecystectomy
Appendectomy
Hernia Repair
Social History
Tobacco: Former Smoker
Alcohol: Daily (2 shots)
Family History
Family History: Not pertinent
Allergies / Home Medications
Allergies reflects when Allergies were last updated in [employer].
Home Medications with original date entered in [employer]
Allergy/Medication List:
Allergies
Allergy/AdvReac Type Severity Reaction Status Date / Time
amoxicillin Allergy diarrhea Verified 02/03/25 11:52
morphine Allergy Vomiting Verified 02/03/25 11:52
Home Medications
rosuvastatin 40 mg tablet (Crestor) 40 mg PO HS High cholesterol 11/04/21
aspirin 81 mg chewable tablet 81 mg PO DAILY Blood clot prevention/tx #0 tabs 04/26/22
albuterol sulfate 90 mcg/actuation aerosol inhaler 2 puff inhalation R Q4HPRN PRN sob/wheezing 10/31/22
docusate sodium 100 mg capsule (Stool Softener) 100 mg PO DAILY Constipation 10/31/22
montelukast 10 mg tablet 10 mg PO HS Allergies 10/31/22
omeprazole 40 mg capsule,delayed release 40 mg PO BID Gastrointestinal Issue 10/31/22
escitalopram oxalate 10 mg tablet 10 mg PO DAILY #30 tabs 01/08/24
nifedipine 30 mg tablet,extended release 30 mg PO DAILY Blood pressure #30 tabs 01/08/24
amlodipine 5 mg tablet 5 mg PO DAILY 02/03/25
doxycycline hyclate 100 mg tablet 100 mg PO BID 02/03/25
furosemide 40 mg tablet 40 mg PO DAILY 02/03/25
levothyroxine 125 mcg tablet 125 mcg PO DAILY 02/03/25
mometasone 0.1 % topical cream 1 applic topical DAILY 02/03/25
nystatin 100,000 unit/gram topical powder 1 applic topical BID 02/03/25
zolpidem 10 mg tablet 10 mg PO HS 02/03/25
Review of Systems
-
History Source: Patient
A 12 point ROS was completed and negative except as noted: Yes
Constitutional: Denies Fever or Chills
Respiratory: Denies Cough or Trouble Breathing
Cardiac: Denies Chest Pain or Palpitations
Abdomen/GI: Denies Abdominal Pain, Nausea, Vomiting, Diarrhea or Constipated
Physical Exam
Vital Signs
Vital Signs
Temp Pulse Resp BP Pulse Ox
97.8 F 61 16 149/123 96
02/03/25 11:53 02/03/25 11:53 02/03/25 13:41 02/03/25 11:53 02/03/25 13:21
Physical Exam
General: Well Developed, Well Nourished and No Apparent Distress
HEENT: NormoCephalic, Anicteric, Moist mucous membranes and Atraumatic
Respiratory: Clear and Non Labored Respirations; No Wheezes, Rales or Rhonchi
Cardiac: S1/S2 and Regular Rhythm; No Murmur
GI: Soft, Non Tender, Non Distended and Normal Bowel Sounds
Rectal: Deferred by Provider
Musculoskeletal: No Clubbing, No Cyanosis and No Edema
Skin: Warm, Dry and Other (Right Anterior Tib/Fib region with large triangular shaped wound with small amount of purulent discharge and surrounding erythema, wound is slightly deep but does not appear to go to the bone)
Neuro: Awake, Alert and Nonfocal/grossly intact
Psych: Calm
Laboratory Results
-
02/03/25 12:04
02/03/25 12:04
Laboratory Results
Total Bilirubin 0.3 mg/dl (0.2-1.3) 02/03/25 12:04
AST 26 U/L (14-36) 02/03/25 12:04
ALT 13 U/L (0-35) 02/03/25 12:04
Alkaline Phosphatase 56 U/L (38-126) 02/03/25 12:04
Data Reviewed
-
Lab Data: Labs Reviewed by me
Old Records: Reviewed
Impression/Plan
-
Right Lower Extremity Cellulitis secondary to Traumatic Wound
-Patient / Family reports prior wound on RLE from over the summer took an extended time to heal
-Check Arterial US with JILL
-Consult Wound Care
-Continue vancomycin / Zosyn
-Await wound culture
Elevated Creatinine, unknown baseline
-Hold furosemide
-Recheck labs in AM
Nonobstructive Coronary Artery Disease
-Continue aspirin
Chronic HFpEF
-Lasix on hold
-Monitor Daily Weights
Essential Hypertension
-Continue amlodipine and nifedipine with hold parameters
Hyperlipidemia
-Continue rosuvastatin
Asthma / COPD
-Continue albuterol PRN
-Continue montelukast
Hypothyroidism
-Continue levothyroxine
DVT proph: SC Heparin
Code Status: DNR
[2025-02-03] MEDS: VANCOCIN 530 MG IV (14:21)
--- NOTE | 2025-02-03 14:41 | W.PN.UPDATE ---
Update Note
Progress Note Update
This note serves as an addendum to the H&P by supervisor microwave DONNA�
[place] DIETERICK
HPI
83yo F with hypothyroidism, HTN, COPD, GERD, HLD, orthostatic hypotension, BPPV, recurrent syncope, Hx of TIA, Linq implant
see at ER
-for evaluation of a wound to the right leg that she sustained about 2 to 3 weeks ago and an accidental fall
- was given a prescription for doxycycline 6 days ago for mild URI but also for the wound
- the redness, pain and drainage have worsened which is what prompted family to bring the patient to the ER today.
Patient denies any fevers, any new injuries. No other concerns at this time.
Relevant VS
Temp Pulse Resp BP Pulse Ox
97.8 F 61 16 149/123 96
02/03/25 11:53 02/03/25 11:53 02/03/25 13:41 02/03/25 11:53 02/03/25 13:21
PE
Gen:Not toxic
HEENT: anicteric
Neck: supple
Lungs: CTA
Cor: RRR S1 S2
Abdomen:�soft NT NG NRT
[employer]: AAO3 , NFND
SKIN:
large triangular shaped wound to the right anteromedial tib-fib region with surrounding erythema
dusky appearance to the lower extremities
The wound is purulent, no bleeding.
Strong pedal pulse
Psych:Nl mood
Relevant data�
01/06/24 02/03/25
20:03 12:04
WBC 7.3
Hgb 11.1 L 10.8 L
Plt Count 221 338
01/08/24 02/03/25
06:25 12:04
Sodium 134 L
BUN 26 H
Creatinine 1.4 H
eGFR 56.60 37.56
Glucose 158 H
C-Reactive Protein Pending
Wd Cx sent
XR: Unremarkable right tibia and fibula. Soft tissue wound was better seen on the previous study
Last hospitalist admission: 01/07/24 - 01/08/24
P DX: Recurrent syncope
ASSESSMENT & PLAN
Infected traumatic large wound at R Leg
Strong R foot DP pulsation
XR: Unremarkable right tibia and fibula. Soft tissue wound was better seen on the previous study
Prior HX appropriate woud healing of Rt Leg
- FU WD cx
- Inadequate progress with OP PO Doxycycline
- Empiric IV vanco and Zosyn for now
- Wd care
[facility]
HX CKD3b
- Trend Cr
Known HX: Inactive
Non-obstructive CAD
HLD
Syncope
Orthostatic hypotension
labile BP with possible essential HTN
Bradycardia
BPPV
HFpEF, chronic
COPD
HLD
HX TIA/CVA
CKD stage 3b
Hypothyroidism
Daily alcohol consumption
Brain aneurism
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
Stable R carotid stenosis
T12 and L1 compression fractures with evidence of previous vertebroplasty
Old L rib Fx
DJD
DVT Px: SQH
Code: Full code
IP MS
[2025-02-03 14:48] LABS: C-Reactive Protein 18.70 mg/L (0.0-10.00)
[2025-02-03 16:00] VITALS: BP 161/59
--- NOTE | 2025-02-03 18:06 | EDCM ---
Chart reviewed, met with pt bedside in ED. Lives alone in 2 story town home, 2 JAY. First floor half bath, has stair glide to second floor.
Independent in ADLs, personal care and ambulation at baseline. No assistive devices.
Believes she has prescription coverage but also uses [facility].
Hx VN, unsure of agency, no hx SNF.
PCP: Karen Chris
Pharmacy: [facility]
Anticipate discharge home, CM will continue to follow for any discharge planning needs.
[2025-02-03 20:37] VITALS: BMI 26.8
[2025-02-03 20:52] VITALS: BP 165/65
--- NOTE | 2025-02-03 21:33 | PHA.VAN.IN ---
Assessment
- Assessment
Renal Function: SCR Appears Elevated from baseline
Concomitant Antimicrobials: PIPERACILLIN/TAZO
Plan
- Plan
Initial / Loading Dose: VANCOMYCIN 1500 MG IV ~ 1415
Maintenance Regimen: Dosing by random level.
Monitoring: A random level is scheduled on 02/04 @ 0600 w. am lab. Pharmacy will follow
Pharmacokinetics Vancomycin I
- -
Patient Age: 84
Patient Sex: Female
Vancomycin Day #: 1
Indication: Skin And Soft Tissue
Requesting Provider: Alvina Dobbs PA-C
Height / Weight:
Height 5 ft 6 in
Actual Weight 75.387 kg
Pertinent Past Medical History: Pt. w. non-healing wound of her right lower extremity
- Vital Signs / Lab Results
Temp Pulse Resp BP Pulse Ox
98.1 F 61 18 165/65 95
02/03/25 20:52 02/03/25 20:52 02/03/25 20:52 02/03/25 20:52 02/03/25 20:52
Lab Results - Hematology
02/03/25
12:04
WBC 7.3
Lab Results - Chemistry
02/03/25
12:04
BUN 26 H
Creatinine 1.4 H
Albumin 3.8
Microbiology Results
02/03/25 13:37 Gram Stain - Preliminary
Leg - Right
[2025-02-03] MEDS: HEPARIN 5000 UNITS SC (21:50)
[2025-02-03] MEDS: PROTONIX 40 MG PO (21:51)
[2025-02-03 23:00] VITALS: BP 186/64
[2025-02-03] MEDS: CRESTOR 40 MG PO (23:19)
[2025-02-03] MEDS: SINGULAIR 10 MG PO (23:19)
[2025-02-03] MEDS: AMBIEN 10 MG PO (23:19)
[2025-02-04] VITALS: BP 172/65
[2025-02-04] MEDS: ZOSYN 50 IV ×2 (04:59→11:24)
[2025-02-04] MEDS: SYNTHROID 125 MCG PO (05:00)
[2025-02-04 06:00] VITALS: BMI 26.8
[2025-02-04 06:13] LABS: Hematocrit 31.2 % (37.0-47.0); Hemoglobin 9.8 g/dL (12.0-16.0); Mean Corp Hgb Conc. 31.4 g/dL (33.0-37.0); Mean Corpuscular Volume 86.7 fL (81.0-99.0); Platelet Count 279 10^3/uL (130-400); Red Cell Dist. Width 15.8 % (11.5-14.5)
[2025-02-04 06:31] LABS: Blood Urea Nitrogen 23 mg/dl (7-17); Calcium 8.6 mg/dl (8.4-10.2); Carbon Dioxide 31 mmol/L (22-30); Chloride 101 mmol/L (98-107); Estimated Creatinine Clearance 34 ml/min; Glucose 96 mg/dl (70-99); Magnesium 1.7 mg/dl (1.6-2.3); Potassium 3.3 mmol/L (3.5-5.1); Sodium 137 mmol/L (135-145); eGFR 45.19
[2025-02-04 07:19] LABS: Glycohemoglobin (HgbA1c) 5.9 % (4.0-5.9)
--- NOTE | 2025-02-04 07:23 | W.PN.HOSP.TC ---
Today's Communication/Plan
-
- f/u wound culture
- f/u JILL
- continue vancomycin
- discontinue piperacillin/tazobactam
- MSAS (chart reported EtOH dependence)
- vitamin B1 and B9 supplementation
- replete KCl 40mEq PO
Assessment / Plan
Assessment / Plan
In summary, 84 yo F PMH essential HTN, HFpEF, COPD, prior aneurysm repair, hypothyroidism p/w wound to right leg currently most concerning for cellulitis
Right Lower Extremity Cellulitis
- wound from trauma with a [place]aitlin ornament that developed erythema, purulence and pain
- tibula/fibula x-ray largely unremarkable
- JILL US pending
- f/u wound care
- f/u wound culture
- continue vancomycin (day 2)
- discontinued piperacillin tazobactam
[facility]
Electrolytes
- Cr 1.4 on admission, baseline is likely 1.0
- home furosemide is held
- this morning, Cr 1.2
- K 3.3, replete KCl 40mEq
EtOH dependence
- per chart history
- MSAS protocol
- vitamin B1 and B9 supplementation
CAD
- aspirin
Chronic HFpEF without exacerbation
- furosemide held
- daily weight stable
Essential Hypertension
- amlodipine
- discontinued nifedipine, patient does not fill
Hyperlipidemia
- rosuvastatin
COPD
- albuterol PRN
- montelukast
Hypothyroidism
- levothyroxine
Code Status: DNR
DVTppx: subq heparin
Anticipated Discharge: Within 24 hours
Subjective/Interval History
-
Date of Service: February 04, 2025
84 yo F PMH essential HTN, HFpEF, COPD, prior aneurysm repair, hypothyroidism p/w wound to right leg from trauma 2-3 weeks ago with a caitlin ornament.
started a course of doxycycline 1 week ago because she developed a fever/chills, but the wound, redness, pain, drainage have worsened --> to ER.
In the ED,
VS afebrile, BP 149/123, HR 61
CBC: wbc 7.3; Hgb 10.8
Electrolytes K 3.7; Cr 1.4 (baseline appears 1.0); BG 158
LFTs wnl
CRP 18.7
ESR 80
leg x-ray right: There are no fractures or dislocations. The joint spaces are maintained. There are no lytic or sclerotic lesions. Soft tissues are unremarkable.
JILL US showed
wound culture was taken
given vancomycin and pip/tazo in ED and continued
this morning, this feels improved, eating breakfast
Objective Data
-
Labs:
Laboratory Results
02/04/25
05:57
WBC 7.2
Hgb 9.8 L
Hct 31.2 L
Plt Count 279
Sodium 137
Potassium 3.3 L
Chloride 101
Carbon Dioxide 31 H
BUN 23 H
Creatinine 1.2 H
Glucose 96
Calcium 8.6
No WBC
Hgb stable
K 3.3
Cr 1.2
Vital Signs:
Vital Signs
Temp Pulse Resp BP Pulse Ox
98.7 F 55 18 172/65 94
02/03/25 23:00 02/04/25 00:00 02/03/25 23:00 02/04/25 00:00 02/03/25 23:00
afebrile, HR 60s, BP 140s/60s
I&O
02/03/25 02/04/25 02/05/25
06:59 06:59 06:59
Intake Total 460 / 460
Balance 460 / 460
Review of Systems
-
History Source: Patient
Constitutional: Reports Fever and Chills
EENT: Reports No Symptoms Reported
Respiratory: Reports No Symptoms
Cardiac: Reports No Symptoms
Abdomen/GI: Reports No Symptoms
Skin: Reports Other (erythema, pain on right lower extremity)
Neuro: Reports No Symptoms
Physical Exam
-
General: Conversant
HEENT: Normocephalic
Respiratory: Clear to Auscultation
Cardiac: Other (no murmurs on my exam)
GI: Soft, Nontender and Normal Bowel Sounds
Skin: Other (erythema on right lower extremity, wound bandage present)
Neuro: AO x 3, Nonfocal/Grossly Intact and Other (able to move all extremities, including toes)
Psych: Calm
--- NOTE | 2025-02-04 07:32 | PTCARENOTE ---
Patient arrived on unit @2029 via stretcher from ED, ambulate to bed with standby assist. Patient AAOx3 denies any pain or discomfort. Skin assessment complete oriented to unit, call beckham in reach.
[2025-02-04 08:00] VITALS: BP 174/58
--- NOTE | 2025-02-04 08:01 | PHA.VAN.FU ---
Vancomycin Assessment / Plan
- Assessment
Renal Function: SCR Decreasing
WBC's are: WNL
In the past 24 hrs, patient has been: Afebrile
Concomitant Antimicrobials: piperacillin/tazobactam
- Assessment - Therapeutic Drug Monitoring
Random Level: 11.2 - drawn ~15.5H after 1500mg loading dose
- Dosing Plan
Dosing by Level: Re-dose today (Vanc 750mg)
- Monitoring Plan
Random Level: 02/05 600
- Follow Up
Pharmacy will continue to follow.
Vancomycin Follow UP
- -
Patient Age: 84
Patient Sex: Female
Vancomycin Day #: 2
Indication: Skin And Soft Tissue
Requesting Provider: Alvina Dobbs PA-C
Pertinent Antimicrobial Allergies:
amoxicillin - diarrhea
Height / Weight:
Height 5 ft 6 in
Actual Weight 75.206 kg
- Vital Signs / Lab Results
Temp Pulse Resp BP Pulse Ox
98.7 F 55 18 172/65 94
02/03/25 23:00 02/04/25 00:00 02/03/25 23:00 02/04/25 00:00 02/03/25 23:00
Lab Results - Hematology
02/03/25 02/04/25
12:04 05:57
WBC 7.3 7.2
Lab Results - Chemistry
02/03/25 02/04/25
12:04 05:57
BUN 26 H 23 H
Creatinine 1.4 H 1.2 H
Estimated Creat Clear 34
Albumin 3.8
Microbiology Results
02/03/25 13:37 Gram Stain - Preliminary
Leg - Right
Therapeutic Drug Monitoring
Random Vancomycin 11.2 ug/ml 02/04/25 05:57
[2025-02-04 08:33] VITALS: BP 144/59
[2025-02-04] MEDS: LEXAPRO 10 MG PO (08:34)
[2025-02-04] MEDS: COLACE 100 MG PO (08:34)
[2025-02-04] MEDS: VANCOCIN 150 IV (08:34)
[2025-02-04] MEDS: HEPARIN 5000 UNITS SC ×2 (08:34→20:56)
[2025-02-04] MEDS: KCL 40 MEQ PO (08:34)
[2025-02-04] MEDS: PROTONIX 40 MG PO ×2 (08:34→20:56)
[2025-02-04] MEDS: LOW STRENGTH ASPIRIN 81 MG PO (08:34)
[2025-02-04] MEDS: NORVASC 5 MG PO (08:34)
--- NOTE | 2025-02-04 10:29 | WOUNDNOTE ---
RIGHT MEDIAL LOWER LEG
--- NOTE | 2025-02-04 10:30 | WOUNDNOTE ---
[facility] RN note: Patient admitted with infected right leg wound
See H&P for complete history.
PMH: HTN, CHF, HF, fractures with joint replacement, hypothyroidism.
Wound Location and type/assessment: Patient admitted with infected right leg wound. Patient known to [facility] for healed right leg wound. Per chart review, patient dropped a Caitlin ornament on her right leg a few weeks. Per patient report, her
Mala who is a PA prescribed Doxycycline at that time. Patient also performed daily wound care with antibiotic ointment. Patient came to ER when she noticed purulent drainage. Wound is triangular in shape and wound bed color is dark. Wound
depth is noted in center of wound to be .5 cm. Surrounding periwound skin is red, warm and tender. +right pedal pulse. Heels and sacrum intact. Patient found ambulating in room. She is on a Versa Care Accumax and heels are off-loaded with pillows
under calves.
Appetite: Good.
Plan: Will recommend cleaning with Dakins and applying Xeroform and silicone foam. Patient was able to tolerate compression with SILVA. Rationale for compression explained to patient, who verbalized understanding. Orders confirmed with Hospitalist.
PAN Melendez updated. Patient agreeable to follow up at [facility].
Note to case management of equipment requested for discharge:
Recommend follow up at wound care center upon discharge.
[2025-02-04] MEDS: DAKIN'S SOLUTION 0.125% 1/4 STRENGTH TOPICAL (11:30)
[2025-02-04] MEDS: FOLVITE 1 MG PO (15:38)
[2025-02-04] MEDS: VITAMIN B1 100 MG PO (15:38)
[2025-02-04 16:05] VITALS: BP 155/53
[2025-02-04] MEDS: SINGULAIR 10 MG PO (20:57)
[2025-02-04] MEDS: AMBIEN 10 MG PO (20:57)
[2025-02-04] MEDS: CRESTOR 40 MG PO (20:57)
[2025-02-04 23:00] VITALS: BP 152/42
[2025-02-05] MEDS: SYNTHROID 125 MCG PO (05:53)
[2025-02-05 06:04] LABS: Hematocrit 29.7 % (37.0-47.0); Hemoglobin 9.4 g/dL (12.0-16.0); Mean Corp Hgb Conc. 31.6 g/dL (33.0-37.0); Mean Corpuscular Volume 89.2 fL (81.0-99.0); Platelet Count 268 10^3/uL (130-400); Red Cell Dist. Width 15.6 % (11.5-14.5)
[2025-02-05 06:27] LABS: Blood Urea Nitrogen 23 mg/dl (7-17); Calcium 9.0 mg/dl (8.4-10.2); Carbon Dioxide 31 mmol/L (22-30); Chloride 104 mmol/L (98-107); Estimated Creatinine Clearance 34 ml/min; Glucose 98 mg/dl (70-99); Potassium 3.9 mmol/L (3.5-5.1); Sodium 137 mmol/L (135-145); eGFR 45.19
--- NOTE | 2025-02-05 07:27 | W.PN.HOSP.TC ---
Today's Communication/Plan
-
- plan is to discharge today,
- abx selection will depend on wound culture
Assessment / Plan
Assessment / Plan
In summary, 84 yo F PMH essential HTN, HFpEF, COPD, prior aneurysm repair, hypothyroidism p/w wound to right leg currently most concerning for cellulitis
Right Lower Extremity Cellulitis
- wound from trauma with a Caitlin ornament that developed erythema, purulence and pain
- tibula/fibula x-ray largely unremarkable
- JILL US wnl, but noted stenosis on right superficial femoral artery
- f/u wound care: will need outpatient follow-up for wound care center
- f/u wound culture
- continue vancomycin (day 3)
- discontinued piperacillin tazobactam
- follow-up wound culture for any further results to guide abx selection, which was rare staph aureus, and rare enterococcus species
- plan is to discharge today, abx selection pending as above since doxycycline did not help.
[facility]
Electrolytes
- Cr 1.4 on admission, baseline is likely 1.0
- home furosemide is held
- this morning, Cr 1.2
- K 3.9
EtOH dependence
- per chart history
- MSAS protocol = 0 so far
- vitamin B1 and B9 supplementation
CAD
- aspirin
Chronic HFpEF without exacerbation
- furosemide held
- daily weight stable
Essential Hypertension
- amlodipine
- discontinued nifedipine, patient does not fill
Hyperlipidemia
- rosuvastatin
COPD
- albuterol PRN
- montelukast
Hypothyroidism
- levothyroxine
Code Status: DNR
DVTppx: subq heparin
Anticipated Discharge: Today
Subjective/Interval History
-
Date of Service: February 05, 2025
feels well, wishes to go home
Objective Data
-
Labs:
Laboratory Results
02/05/25
05:41
WBC 6.9
Hgb 9.4 L
Hct 29.7 L
Plt Count 268
Sodium 137
Potassium 3.9
Chloride 104
Carbon Dioxide 31 H
BUN 23 H
Creatinine 1.2 H
Glucose 98
Calcium 9.0
Random vancomycin 10.4
JILL 02/04/2025
IMPRESSION:
RIGHT LOWER EXTREMITY: JILL within normal limits at 0.94. TBI moderately reduced at 0.57. Arterial duplex examination reveals multiphasic waveforms from the common femoral artery through the popliteal artery. There is a focal velocity elevation in
the mid superficial femoral artery at 364 cm/s (ratio 2.2) consistent with a greater than 50% stenosis at this location.
LEFT LOWER EXTREMITY: JILL within normal limits at 1.14. TBI within normal limits at 0.69. Arterial duplex examination reveals multiphasic waveforms from the common femoral artery through the popliteal artery with no focal velocity elevations to
suggest significant stenosis across that segment.
Vital Signs:
Vital Signs
Temp Pulse Resp BP Pulse Ox
98.2 F 58 17 152/42 94
02/04/25 23:00 02/04/25 23:00 02/04/25 23:00 02/04/25 23:00 02/04/25 23:00
MSAS 0
I&O
02/04/25 02/05/25 02/06/25
06:59 06:59 06:59
Intake Total 460 / 460 1140 / 1140
Balance 460 / 460 1140 / 1140
Review of Systems
-
History Source: Patient
EENT: Reports No Symptoms Reported
Respiratory: Reports No Symptoms
Cardiac: Reports No Symptoms
Abdomen/GI: Reports No Symptoms
Skin: Reports Other (erythema, pain on right lower extremity)
Neuro: Reports No Symptoms
Physical Exam
-
General: Conversant
HEENT: Normocephalic
Respiratory: Clear to Auscultation
Cardiac: Other (no murmurs on my exam)
GI: Soft, Nontender and Normal Bowel Sounds
Skin: Other (erythema on right lower extremity, wound bandage present)
Neuro: AO x 3, Nonfocal/Grossly Intact and Other (able to move all extremities, including toes)
Psych: Calm
--- NOTE | 2025-02-05 07:47 | PHA.VAN.FU ---
Vancomycin Assessment / Plan
- Assessment
Renal Function: Stable
WBC's are: WNL
In the past 24 hrs, patient has been: Afebrile
- Assessment - Therapeutic Drug Monitoring
Random Level: 10.4 - drawn ~21H after previous dose of 750mg
- Dosing Plan
Dosing by Level: Re-dose today (Vanc 750mg)
- Monitoring Plan
Random Level: 02/06 06
- Follow Up
Pharmacy will continue to follow.
Vancomycin Follow UP
- -
Patient Age: 84
Patient Sex: Female
Vancomycin Day #: 3
Indication: Skin And Soft Tissue
Requesting Provider: Alvina Dobbs PA-C
Pertinent Antimicrobial Allergies:
amoxicillin - diarrhea
Height / Weight:
Height 5 ft 6 in
Actual Weight 75.206 kg
- Vital Signs / Lab Results
Temp Pulse Resp BP Pulse Ox
98.2 F 58 17 152/42 94
02/04/25 23:00 02/04/25 23:00 02/04/25 23:00 02/04/25 23:00 02/04/25 23:00
Lab Results - Hematology
02/03/25 02/04/25 02/05/25
12:04 05:57 05:41
WBC 7.3 7.2 6.9
Lab Results - Chemistry
02/03/25 02/04/25 02/05/25
12:04 05:57 05:41
BUN 26 H 23 H 23 H
Creatinine 1.4 H 1.2 H 1.2 H
Estimated Creat Clear 34 34
Albumin 3.8
Microbiology Results
02/03/25 13:37 Wound Culture - Preliminary
Leg - Right Gram Stain - Preliminary
Therapeutic Drug Monitoring
Random Vancomycin 10.4 ug/ml 02/05/25 05:41
[2025-02-05] MEDS: VITAMIN B1 100 MG PO (07:48)
[2025-02-05] MEDS: LOW STRENGTH ASPIRIN 81 MG PO (07:48)
[2025-02-05] MEDS: FOLVITE 1 MG PO (07:48)
[2025-02-05] MEDS: PROTONIX 40 MG PO (07:48)
[2025-02-05] MEDS: COLACE 100 MG PO (07:48)
[2025-02-05] MEDS: NORVASC 5 MG PO (07:49)
[2025-02-05] MEDS: LEXAPRO 10 MG PO (07:49)
[2025-02-05] MEDS: HEPARIN SC (07:52)
[2025-02-05] MEDS: DAKIN'S SOLUTION 0.125% 1/4 STRENGTH 75 ML TOPICAL (07:53)
[2025-02-05 07:56] VITALS: BP 163/63
[2025-02-05] MEDS: VANCOCIN 150 IV (07:58)
--- NOTE | 2025-02-05 11:54 | CM ---
Addendum entered by Yael Espinoza 02/06/25 10:17:
CM contacted today by Jordy today - pt was being followed for VN with Jordy. Referral sent via [facility] today.
Pt will also follow up with outpatient wound care center.
Original Note:
CM following to coordinate discharge planning needs. Maria C has been ambulatory in her room, and also in the hallways. At baseline she is (I) amb and adls.
Currently on IV abx; per MD, patient will likely change to oral abx at discharge.
Plan: Discharge to home with follow up at outpatient wound care center.
[2025-02-05 14:45] VITALS: BMI 27.2
[2025-02-05 15:21] VITALS: BP 159/51
--- NOTE | 2025-02-05 15:23 | W.DCSUMMARY ---
Documented by User: Kvng Sterling MD, Resident 02/05/25 15:38
Discharge Summary
Discharge Data
Date of Admission: 02/03/25
Date of Discharge: 02/05/25
-
Pending Results: Yes
Additional Pending Results:
wound cultures
Hospital Course
Discharging Physician : Dr. Ayden Paul; Dr. Kvng Sterling
Disposition : Home
Primary care physician : Karen Chris
Principal Discharge diagnosis : Purulent cellulitis, PARADISE, PAD
Chronic Discharge diagnosis : CAD, chronic HFpEF, essential HTN, HLD, COPD, hypothyroidism
Hospital Course :
84 yo F PMH essential HTN, HFpEF, COPD, prior aneurysm repair, hypothyroidism p/w wound to right leg from trauma 2-3 weeks ago with a [place] ornament. She started a course of doxycycline 1 week ago because she developed a fever/chills, but the
wound, redness, pain, drainage have worsened and thus presented to the ER. In the ER, VSS, electrolytes notable for Cr 1.4, CRP 18.7, ESR 80. Imaging showed leg x-ray that had no fractures or dislocations with unremarkable soft tissue. She was given
vancomycin and piperacillin/tazobactam in the ED. Vancomycin was continued during her admission.
Her admission had improving symptoms of purulent cellulitis and a noted PARADISE, that has been improving. She has been consistently afebrile with no leukocytosis, and VS stably within normal limits.
The following problems were addressed during this admission.
Right Lower Extremity Purulent Cellulitis
- wound from trauma with a [place] ornament that developed erythema, purulence and pain
- tibula/fibula x-ray largely unremarkable
- JILL US wnl, but noted stenosis on right superficial femoral artery
- wound culture showed rare staph aureus, rare enterococcus on preliminary read
- has received vancomycin and piperacillin/tazobactam
- f/u wound care: will need outpatient follow-up for wound care center
- plan to discharge on amoxicillin/clavulanate and TMP-SMX DS for 7 additional day, empiric treatment
- patient was also provided a script for loperamide in the event she experiences looser stools
PARADISE
- Cr 1.4 on admission, baseline is likely 1.0
- On day of discharge, Cr 1.2, K 3.9
Peripheral arterial disease
- JILL US wnl, but noted 50% stenosis on right superficial femoral artery
- outpatient follow-up with vascular surgery recommended
EtOH dependence
- per chart history
- MSAS protocol = 0 during the admission
- she received vitamin B1 and B9 supplementation while admitted
CAD
- aspirin
Chronic HFpEF without exacerbation
Essential Hypertension
- amlodipine
- discontinued nifedipine, patient does not fill
Hyperlipidemia
- rosuvastatin
COPD
- albuterol PRN
- montelukast
Hypothyroidism
- levothyroxine
Important imaging findings :
02/03/2025 Tibia/Fibula X-ray
COMPARISON: There are no fractures or dislocations. The joint spaces are maintained. There are no lytic or sclerotic lesions. Soft tissues are unremarkable.
IMPRESSION: Unremarkable right tibia and fibula. Soft tissue wound was better seen on the previous study
02/04/2025 Extremity Arterial Study
IMPRESSION:
RIGHT LOWER EXTREMITY: JILL within normal limits at 0.94. TBI moderately reduced at 0.57. Arterial duplex examination reveals multiphasic waveforms from the common femoral artery through the popliteal artery. There is a focal velocity elevation in
the mid superficial femoral artery at 364 cm/s (ratio 2.2) consistent with a greater than 50% stenosis at this location.
LEFT LOWER EXTREMITY: JILL within normal limits at 1.14. TBI within normal limits at 0.69. Arterial duplex examination reveals multiphasic waveforms from the common femoral artery through the popliteal artery with no focal velocity elevations to
suggest significant stenosis across that segment.
Discharge Plan
-
Patient Disposition: Home (Routine Discharge)
Discharge Diagnosis/Procedures: Acute: Purulent cellulitis, PARADISE, PAD
Chronic: CAD, chronic HFpEF, essential HTN, HLD, COPD, hypothyroidism
Condition: Fair
Diet: Low Cholesterol
Activity: As tolerated
Driving Restrictions: As prior to admission
Blood Work: BMP, CBC with differential in 5 to 7 days with your family doctor
Activity Restrictions/Additional Instructions:
Wound Care Instructions Right Leg Wound- Clean with Dakins, apply Xeroform and silicone border foam. Change daily.
Compression to Right Leg with SILVA, Reapply daily.
Follow up at wound care center call for an appointment.
alternative wound care clinics include:
(1) [facility] in [place];
(2) [facility] in [place];
(3) [facility] in [place].
Referrals:
Tyrese Edgar III, MD [Active, Vascular Surgery] - in three to four weeks
Karen Chris MD [Family Provider, Internal Medicine]
Additional Discharge Medication Instructions: alternative wound care clinics include:
(1) [facility] in [place];
(2) [facility] in [place];
(3) [facility] [employer] in [place].
You should take your new antibiotics (listed below) as directed through 02/12/2025
You should stop taking doxycycline
You can use Imodium as needed if the antibiotics cause loose stool/diarrhea
You can resume your other medications as below.
Please also follow-up with your primary care doctor within 1 week.
Prescriptions:
New
sulfamethoxazole-trimethoprim [Bactrim DS] 800-160 mg tablet
1 tab PO Q12H 7 Days Qty: 14 0RF
amoxicillin-pot clavulanate 875-125 mg tablet
1 tab PO Q12H 7 Days Qty: 14 0RF
loperamide [Imodium A-D] 2 mg capsule
2 mg PO Q6H PRN (Reason: loose stool) 7 Days Qty: 30 0RF
Continued
rosuvastatin [Crestor] 40 mg Tablet
40 mg PO HS
aspirin 81 mg Tablet,Chewable
81 mg PO DAILY Qty: 0 0RF
omeprazole 40 mg capsule,delayed release(DR/EC)
40 mg PO BID
docusate sodium [Stool Softener] 100 mg Capsule
100 mg PO DAILY
montelukast 10 mg tablet
10 mg PO HS
albuterol sulfate 90 mcg/actuation HFA aerosol inhaler
2 puff INHALATION R Q4HPRN PRN (Reason: sob/wheezing)
escitalopram oxalate 10 mg Tablet
10 mg PO DAILY Qty: 30 0RF
furosemide 40 mg Tablet
40 mg PO DAILY
amlodipine 5 mg Tablet
5 mg PO DAILY
nystatin 100,000 unit/gram Powder
1 applic TOPICAL BID
zolpidem 10 mg Tablet
10 mg PO HS
mometasone 0.1 % Cream
1 applic TOPICAL DAILY
levothyroxine 125 mcg tablet
125 mcg PO DAILY
Discontinued
nifedipine 30 mg Tablet Extended Release
30 mg PO DAILY Qty: 30 0RF
doxycycline hyclate 100 mg Tablet
100 mg PO BID
Rx Instructions:
started 01/28/25 lasting 7 days - finish on 02/04/25 MO
Discharge Orders:
Discharge Patient (As Directed); Ordered 02/05/25
Ordered By: Kvng Sterling
Discharge Date and Time
Print Language: MALIAN

Documented by User: Ayden Paul DO 02/05/25 16:14
Discharge Summary
Discharge Data
Date of Admission: 02/03/25
Date of Discharge: 02/05/25
Total time spent discharging patient (in min): 35
Discharge Plan
-
Patient Disposition: Home (Routine Discharge)
Discharge Diagnosis/Procedures: Acute: Purulent cellulitis, PARADISE, PAD
Chronic: CAD, chronic HFpEF, essential HTN, HLD, COPD, hypothyroidism
Condition: Fair
Diet: Low Cholesterol
Activity: As tolerated
Driving Restrictions: As prior to admission
Blood Work: BMP, CBC with differential in 5 to 7 days with your family doctor
Activity Restrictions/Additional Instructions:
Wound Care Instructions Right Leg Wound- Clean with Dakins, apply Xeroform and silicone border foam. Change daily.
Compression to Right Leg with SILVA, Reapply daily.
Follow up at wound care center call for an appointment.
alternative wound care clinics include:
(1) [facility] in [place];
(2) [facility] in [place];
(3) [facility] [employer] in [place].
Referrals:
Tyrese Edgar III, MD [Active, Vascular Surgery] - in three to four weeks
Karen Chris MD [Family Provider, Internal Medicine]
Additional Discharge Medication Instructions: alternative wound care clinics include:
(1) [facility] in [place];
(2) [facility] in [place];
(3) [facility] in [place].
You should take your new antibiotics (listed below) as directed through 02/12/2025
You should stop taking doxycycline
You can use Imodium as needed if the antibiotics cause loose stool/diarrhea
You can resume your other medications as below.
Please also follow-up with your primary care doctor within 1 week.
Prescriptions:
New
sulfamethoxazole-trimethoprim [Bactrim DS] 800-160 mg tablet
1 tab PO Q12H 7 Days Qty: 14 0RF
amoxicillin-pot clavulanate 875-125 mg tablet
1 tab PO Q12H 7 Days Qty: 14 0RF
loperamide [Imodium A-D] 2 mg capsule
2 mg PO Q6H PRN (Reason: loose stool) 7 Days Qty: 30 0RF
Continued
rosuvastatin [Crestor] 40 mg Tablet
40 mg PO HS
aspirin 81 mg Tablet,Chewable
81 mg PO DAILY Qty: 0 0RF
omeprazole 40 mg capsule,delayed release(DR/EC)
40 mg PO BID
docusate sodium [Stool Softener] 100 mg Capsule
100 mg PO DAILY
montelukast 10 mg tablet
10 mg PO HS
albuterol sulfate 90 mcg/actuation HFA aerosol inhaler
2 puff INHALATION R Q4HPRN PRN (Reason: sob/wheezing)
escitalopram oxalate 10 mg Tablet
10 mg PO DAILY Qty: 30 0RF
furosemide 40 mg Tablet
40 mg PO DAILY
amlodipine 5 mg Tablet
5 mg PO DAILY
nystatin 100,000 unit/gram Powder
1 applic TOPICAL BID
zolpidem 10 mg Tablet
10 mg PO HS
mometasone 0.1 % Cream
1 applic TOPICAL DAILY
levothyroxine 125 mcg tablet
125 mcg PO DAILY
Discontinued
nifedipine 30 mg Tablet Extended Release
30 mg PO DAILY Qty: 30 0RF
doxycycline hyclate 100 mg Tablet
100 mg PO BID
Rx Instructions:
started 01/28/25 lasting 7 days - finish on 02/04/25 MO
Discharge Orders:
Discharge Patient (As Directed); Ordered 02/05/25
Ordered By: Kvng Sterling
Discharge Date and Time
Print Language: MALIAN
== END 2025-02-05 17:11 | disposition home or self-care (01) | DRG 603 ==
LOC: 3 WEST ACU 15:27
PROVIDERS: Emergency Medicine; Physician Assistant Medical; ADMITTING PHYSICIAN Internal Medicine; ATTENDING PHYSICIAN Internal Medicine; EMERGENCY PHYSICIAN Emergency Medicine; FAMILY PHYSICIAN Internal Medicine
DX: L03.115 Cellulitis of right lower limb (principal); N17.9 Acute kidney failure, unspecified; I13.0 Hypertensive heart and chronic kidney disease with heart failure and stage 1 through stage 4 chronic kidney disease, or unspecified chronic kidney disease; I50.32 Chronic diastolic (congestive) heart failure; I73.9 Peripheral vascular disease, unspecified; I25.10 Atherosclerotic heart disease of native coronary artery without angina pectoris; J44.89 Other specified chronic obstructive pulmonary disease; E03.9 Hypothyroidism, unspecified; N18.32 Chronic kidney disease, stage 3b; I95.1 Orthostatic hypotension; G47.00 Insomnia, unspecified; Z86.73 Personal history of transient ischemic attack (TIA), and cerebral infarction without residual deficits; Z87.891 Personal history of nicotine dependence; Z88.0 Allergy status to penicillin; Z88.5 Allergy status to narcotic agent; Z79.899 Other long term (current) drug therapy; Z79.82 Long term (current) use of aspirin; Z79.890 Hormone replacement therapy; Z66 Do not resuscitate; E78.00 Pure hypercholesterolemia, unspecified; H81.10 Benign paroxysmal vertigo, unspecified ear; K21.9 Gastro-esophageal reflux disease without esophagitis; Z86.79 Personal history of other diseases of the circulatory system; Z96.641 Presence of right artificial hip joint; F10.20 Alcohol dependence, uncomplicated
CPT/HCPCS: 73590; 80048; 80053; 80202; 83036; 83735; 85025; 85027; 85652; 86140; 87070; 87077; 87147; 87186; 87205; 93922; 93925; 96365; 96367; 99285